=== PATIENT | female | born 1955 | race Caucasian/White ===

== ENCOUNTER 2016-03-29 20:58 | Emergency (ER) | payer OTHER ==
[2016-03-29] MEDS ORDERED: IBUPROFEN 600 MG TAB PO STA (22:00)
--- NOTE | 2016-03-29 22:08 | ED ---
Lower Extremity Injury HPI - General Chief Complaint: Extremity Injury, Lower Stated Complaint: R ankle injury Time Seen by Provider: 03/29/16 21:35 Source: patient, RN notes reviewed Mode of arrival: wheelchair Limitations: no limitations - History of Present Illness Initial Comments: Patient is a 60-year-old female presents to the emergency room for evaluation of fall injury. Patient states that she slipped and fell on ice on her porch. Patient states that she twisted her right ankle. Patient states she's complaining of right ankle pain. Patient denies any other injuries during incident. Patient states having 8 out of 10 constant throbbing pain on lateral portion of her ankle. Patient denies any numbness or tingling in her toes. Patient states it causes her pain to move her toes and her ankle. Patient denies knee pain or hip pain. - Related Data Home Medications Medication Instructions Recorded Confirmed Calcium Carbonate/Vitamin D3 1 tab PO DAILY 11/30/13 03/29/16 [Caltrate 600 + D Tablet] Diclofenac Sodium/Misoprostol 1 tab PO BID 11/30/13 03/29/16 [Diclofenac-Misoprost 75-200 Tb] Insulin Glargine [Lantus] 20 unit SQ HS 11/30/13 03/29/16 Losartan [Cozaar] 50 mg PO DAILY 11/30/13 03/29/16 Simvastatin [Zocor] 40 mg PO HS 11/30/13 03/29/16 metFORMIN HCL [Glucophage] 500 mg PO BID 11/30/13 03/29/16 Aspirin EC [Ecotrin Low Dose] 81 mg PO DAILY 03/29/16 03/29/16 Escitalopram [Lexapro] 20 mg PO HS 03/29/16 03/29/16 Insulin Lispro [humaLOG Kwikpen] See Protocol SQ AC-TID 03/29/16 03/29/16 Multivits-Min/Iron/FA/Lutein 1 tab PO DAILY 03/29/16 03/29/16 [Centrum Silver Women Tablet] Omeprazole [PriLOSEC] 20 mg PO DAILY 03/29/16 03/29/16 Previous Rx's Medication Instructions Recorded Ibuprofen [Motrin] 600 mg PO Q6HR PRN #20 tab 03/29/16 Allergies Allergy/AdvReac Type Severity Reaction Status Date / Time No Known Allergies Allergy Verified 03/29/16 21:39 Review of Systems ROS Statement: Those systems with pertinent positive or pertinent negative responses have been documented in the HPI. ROS Other: All systems not noted in ROS Statement are negative. Past Medical History Past Medical History: Diabetes Mellitus, Hyperlipidemia, Hypertension History of Any Multi-Drug Resistant Organisms: None Reported Past Surgical History: Section, Cholecystectomy, Hysterectomy, Orthopedic Surgery Additional Past Surgical History / Comment(s): PARTIAL HYSTERECTOMY; THYROID SURGERY; HEEL SPUR REMOVAL; BILATERAL CARPAL TUNNEL REPAIR; PIN/PLATE/GRAFT/ SCREWS LEFT WRIST Past Anesthesia/Blood Transfusion Reactions: No Reported Reaction Past Psychological History: Depression Smoking Status: Current every day smoker Past Alcohol Use History: None Reported Additional Past Alcohol Use History / Comment(s): pt stated smokes 1/2 pack per day Past Drug Use History: None Reported - Past Family History Father Additional Family Medical History / Comment(s): quadruple bypass, 2 or 3 stents placed (pt can't remember) General Exam - General Exam Comments Initial Comments: Sitting in exam room in no acute distress. Limitations: no limitations General appearance: alert, in no apparent distress Head exam: Present: atraumatic, normocephalic, normal inspection Eye exam: Present: normal appearance ENT exam: Present: normal exam Neck exam: Present: normal inspection Respiratory exam: Present: normal lung sounds bilaterally. Absent: respiratory distress Cardiovascular Exam: Present: regular rate, normal rhythm, normal heart sounds Right Lower Leg exam: Present: normal inspection, full ROM. Absent: tenderness Ankle exam: Present: full ROM, tenderness (Lateral malleolus), swelling ( Lateral malleolus). Absent: normal inspection, ecchymosis, deformity Foot/Toe exam: Present: normal inspection, full ROM. Absent: tenderness Neurovascular tendon exam: Absent: pulse deficit (2+ dorsal pedal and posterior tibial pulses), abnormal cap refill (Capillary refill less than 2 seconds) Back exam: Present: normal inspection Neurological exam: Present: alert, oriented X3, CN II-XII intact Psychiatric exam: Present: normal affect, normal mood Skin exam: Present: warm, dry, intact, normal color. Absent: rash Course Vital Signs 03/29/16 21:10 Temperature 98.4 F Pulse Rate 82 Respiratory 20 Rate Blood Pressure 199/97 O2 Sat by Pulse 97 Oximetry Medical Decision Making - Medical Decision Making Patient is a 60-year-old female since emergency room for about the fall injury. Patient complaining of right ankle pain. Right ankle/foot x-ray shows no acute findings. Patient placed in an Abdirashid wrap and crutches and advised follow up with gas plant specialist if symptoms are not improving in 7-10 days. Patient states she understands everything that was discussed with her. Return parameters discussed. Case discussed with Dr. Turcios. - Radiology Data Radiology results: report reviewed, image reviewed Disposition Clinical Impression: Right ankle sprain Disposition: HOME SELF-CARE Condition: Good Instructions: Ankle Sprain (ED) Additional Instructions: Rest, elevate and ice on and off for 10-15 minutes for the next 24-48 hours. Take Tylenol or Motrin as needed for pain. Nonweightbearing for 1-2 days. Please follow-up with gas plant specialist in 7-10 days if symptoms are not improving. If new symptoms develop or symptoms worsen, please return to the ER. Prescriptions: Ibuprofen [Motrin] 600 mg PO Q6HR PRN #20 tab PRN Reason: Pain Referrals: Buster Washington MD [Primary Care Provider] - 1-2 days Wilbur Lopez MD [Medical Doctor] - 1-2 days Time of Disposition: 22:15
--- NOTE | 2016-03-29 22:11 | XR ---
EXAMINATION TYPE: XR foot complete RT DATE OF EXAM: 03/29/2016 9:42 PM COMPARISON: NONE HISTORY: Pain after fall TECHNIQUE: 3 views FINDINGS: Bones and joints and soft tissues are unremarkable. IMPRESSION: Negative for fracture or malalignment.
--- NOTE | 2016-03-29 22:12 | XR ---
EXAMINATION TYPE: XR ankle complete RT DATE OF EXAM: 03/29/2016 9:42 PM COMPARISON: NONE HISTORY: Pain after fall TECHNIQUE: Reviews FINDINGS: Bones and joints and soft tissues are unremarkable. IMPRESSION: Negative for fracture or malalignment.
[2016-03-29 22:56] VITALS: BP 185/86; PULSE 65; RESP 18; TEMP 98.5
== END 2016-03-29 22:56 | disposition home or self-care (01) ==
LOC: EC 20:58
DX: S93.401A Sprain of unspecified ligament of right ankle, initial encounter (principal); E11.9 Type 2 diabetes mellitus without complications; E78.5 Hyperlipidemia, unspecified; I10 Essential (primary) hypertension; F32.9 Major depressive disorder, single episode, unspecified; F17.200 Nicotine dependence, unspecified, uncomplicated; W00.0XXA Fall on same level due to ice and snow, initial encounter; Y92.008 Other place in unspecified non-institutional (private) residence as the place of occurrence of the external cause; Z79.82 Long term (current) use of aspirin; Z79.4 Long term (current) use of insulin; Z79.899 Other long term (current) drug therapy; Z79.1 Long term (current) use of non-steroidal anti-inflammatories (NSAID)
CPT/HCPCS: 99283

== ENCOUNTER → 2016-12-10 | Outpatient (CLI) | payer OTHER ==
--- NOTE | 2016-12-11 10:20 | MM ---
Reason for exam: screening (asymptomatic). Last mammogram was performed 7 years ago. History: Patient is postmenopausal. Took hormonal contraceptives for 1 year 6 months beginning at age 21. Took estrogen for 5 years beginning at age 43. Physical Findings: A clinical breast exam by your physician is recommended on an annual basis and results should be correlated with mammographic findings. MG Screening Mammo w CAD Bilateral CC and MLO view(s) were taken. Prior study comparison: December 23, 2009, bilateral diagnostic digital mammog. December 17, 2008, bilateral digital screening mammogram. The breast tissue is heterogeneously dense. This may lower the sensitivity of mammography. Stable benign calcifications. There is no discrete abnormality. No significant changes when compared with prior studies. ASSESSMENT: Benign, BI-RAD 2 RECOMMENDATION: Routine screening mammogram of both breasts in 1 year.
== END | disposition home or self-care (01) ==
LOC: RADMAMWWP 16:24
PROVIDERS: ATTEND Family Medicine
DX: Z12.31 Encounter for screening mammogram for malignant neoplasm of breast (principal)

== ENCOUNTER → 2017-07-13 | Outpatient (CLI) | payer OTHER ==
--- NOTE | 2017-07-13 11:23 | CT ---
EXAMINATION TYPE: CT sinus wo con DATE OF EXAM: 07/13/2017 COMPARISON: NONE HISTORY: Patient complains of chronic sinus congestion, drainage, pressure, infections. CT DLP: 548 mGycm. Automated Exposure Control for Dose Reduction was Utilized. TECHNIQUE: CT scan of the sinuses is performed without contrast, axial images are obtained, coronal r eformatted images are also reviewed. FINDINGS: There is minimal opacification of the ethmoid air cells. Moderate coastal thickening involv ing the sphenoid sinus. No air-fluid levels. Nasal septal deviation noted.. The ostiomeatal complex is patent bilaterally on the coronal images. Visualized portion of mastoid air cells show no abnormal opacification. The globes are intact bilate rally. IMPRESSION: 1. Moderate sphenoidal and mild ethmoidal sinusitis.
== END | disposition home or self-care (01) ==
LOC: RADCTMAIN 10:41
PROVIDERS: ATTEND Family Medicine
DX: J32.3 Chronic sphenoidal sinusitis (principal); J32.2 Chronic ethmoidal sinusitis
CPT/HCPCS: 70486

== ENCOUNTER → 2017-08-01 | Outpatient (CLI) | payer OTHER ==
[2017-08-01 14:40] LABS: Basophils % (A) 0 %; Eosinophils % (A) 0 %; HCT 33.5 % (34.0-46.0); HGB 11.1 gm/dL (11.4-16.0); Lymphocytes # (A) 1.7 k/uL (1.0-4.8); Lymphocytes % (A) 12 %; MCH 29.3 pg (25.0-35.0); MCHC 33.2 g/dL (31.0-37.0); MCV 88.4 fL (80.0-100.0); Mean Platelet Volume 7.8; Monocytes # (A) 0.6 k/uL (0-1.0); Monocytes % (A) 5 %; Neutrophils # (A) 11.4 k/uL (1.3-7.7); Neutrophils % (A) 82 %; Platelet Count 216 k/uL (150-450); RBC 3.79 m/uL (3.80-5.40); RDW 14.1 % (11.5-15.5); WBC 13.9 k/uL (3.8-10.6)
[2017-08-01 14:50] LABS: Albumin 3.5 g/dL (3.5-5.0); C Reactive Protein 80.6 mg/L (<10.0); Calcium 8.7 mg/dL (8.4-10.2); Potassium 4.6 mmol/L (3.5-5.1); Total Bilirubin 0.6 mg/dL (0.2-1.3); Total Protein 6.9 g/dL (6.3-8.2)
[2017-08-01 20:47] LABS: Gliadin AB IgA, Unit 1.5 U/mL
== END | disposition home or self-care (01) ==
LOC: LABWHC1 14:02
PROVIDERS: ATTEND Internal Medicine Gastroenterology
DX: K52.9 Noninfective gastroenteritis and colitis, unspecified (principal)
CPT/HCPCS: 36415; 80053; 83516; 85025; 86140

== ENCOUNTER 2017-08-02 09:23 | Inpatient (IN) | payer OTHER ==
[2017-08-02] MEDS ORDERED: SODIUM CHLORIDE 0.9% 1,000 ML IV STA (09:50)
[2017-08-02 10:24] LABS: Basophils % (A) 0 %; Eosinophils % (A) 0 %; HGB 11.1 gm/dL (11.4-16.0); Lymphocytes # (A) 1.5 k/uL (1.0-4.8); Lymphocytes % (A) 9 %; MCH 30.2 pg (25.0-35.0); MCHC 34.9 g/dL (31.0-37.0); MCV 86.5 fL (80.0-100.0); Mean Platelet Volume 7.6; Monocytes # (A) 0.8 k/uL (0-1.0); Monocytes % (A) 5 %; Neutrophils % (A) 85 %; Platelet Count 220 k/uL (150-450); RBC 3.69 m/uL (3.80-5.40); RDW 13.9 % (11.5-15.5); WBC 16.5 k/uL (3.8-10.6)
[2017-08-02 10:38] LABS: Albumin 3.7 g/dL (3.5-5.0); Amylase 119 U/L (30-110); Anion Gap 14 mmol/L; Calcium 8.8 mg/dL (8.4-10.2); Carbon Dioxide 17 mmol/L (22-30); Chloride 96 mmol/L (98-107); Glucose 142 mg/dL (74-99); Lipase 985 U/L (23-300); Sodium 127 mmol/L (137-145); Total Bilirubin 0.9 mg/dL (0.2-1.3); Total Protein 7.2 g/dL (6.3-8.2)
[2017-08-02 10:40] LABS: ALT 29 U/L (9-52); AST 45 U/L (14-36); Blood Urea Nitrogen 34 mg/dL (7-17); Magnesium 1.2 mg/dL (1.6-2.3); Potassium 4.8 mmol/L (3.5-5.1)
[2017-08-02 10:41] LABS: Alkaline Phosphatase 117 U/L (38-126)
--- NOTE | 2017-08-02 11:34 | CT ---
EXAMINATION TYPE: CT abdomen pelvis wo con DATE OF EXAM: 08/02/2017 COMPARISON: NONE HISTORY: Nausea, vomiting and diarrhea for 6 months, worse in the past [address] DLP: 1061 mGycm Automated exposure control for dose reduction was used. TECHNIQUE: Helical acquisition of images was performed from the lung bases through the pelvis. FINDINGS: LUNG BASES: No significant abnormality is appreciated. LIVER/GB: The liver is elongated and hypoattenuated diffusely most commonly related to hepatic steato sis. Although the gallbladder is surgically absent there remains a small 2 mm calculus likely within the dilated cystic duct remnant on series 3 image 26 and series 5 image 40. The common bile duct seen series 5 image 36 is nondilated and free of calculi. PANCREAS: No significant abnormality is seen. SPLEEN: No significant abnormality is seen. ADRENALS: There is slight thickening of the adrenal glands bilaterally elbow they maintain their norm al adreniform shape most characteristic of adrenal gland hyperplasia. KIDNEYS: There is mild bilateral perinephric fat stranding, left greater than right and bilateral pun ctate nonobstructing renal calculi (1 to 2 mm each). There are 2 calculi noted on the left and 2 calc quynh noted on the right. Uroepithelial thickening is seen of the left renal pelvis although there is n o hydronephrosis or obstructing calculus. Emanating from the right upper pole of the kidney there is a 4 mm too small to accurately characterize lesion containing 2 punctate calcifications. FREE AIR: No free air is visualized ADENOPATHY: No greater than 1 cm short axis lymph node is seen within the abdomen or pelvis. REPRODUCTIVE ORGANS: No significant abnormality is seen URINARY BLADDER: No significant abnormality is seen. OSSEOUS STRUCTURES: Mild multilevel degenerative changes of the visualized thoracolumbar spine are n oted. BOWEL: Numerous colonic diverticula are seen without focal pericolonic fat stranding. Surgical sutur es are noted of the cecum. No dilated large or small bowel. Diffuse thickening of the gastric body co uld relate to incomplete distention or gastritis. Small gastric diverticulum is incidentally noted. A dditionally within the ascending colon there is some mucosal deposition of fat, which can be seen in chronic inflammatory disorders. IMPRESSION: 1. LEFT PERINEPHRIC FAT STRANDING AND PROXIMAL UROEPITHELIAL THICKENING RAISING SUSPICION FOR PYELONE PHRITIS. CORRELATE WITH URINALYSIS. BILATERAL NONOBSTRUCTING RENAL CALCULI ARE SEEN WITH NO EVIDENCE OF OBSTRUCTIVE UROPATHY OR HYDRONEPHROSIS. 2. DIFFUSE GASTRIC BODY CIRCUMFERENTIAL THICKENING MAY RELATE TO INCOMPLETE DISTENTION OR GASTRITIS. ENDOSCOPY COULD BE PERFORMED FOR FURTHER EVALUATION. 3. SUBMUCOSAL DEPOSITION OF FAT WITHIN THE ASCENDING COLON CAN BE SEEN IN CHRONIC INFLAMMATORY BOWEL DISEASE. 4. PUNCTATE CALCIFICATION LIKELY WITHIN THE CYSTIC DUCT REMNANT. NO DILATED COMMON BILE DUCT. 5. COLONIC DIVERTICULOSIS WITHOUT EVIDENCE OF ACUTE DIVERTICULITIS.
--- NOTE | 2017-08-02 11:45 | ED ---
Nausea/Vomiting/Diarrhea HPI - General Chief complaint: Nausea/Vomiting/Diarrhea Stated complaint: NVD Time Seen by Provider: 08/02/17 09:50 Source: patient, RN notes reviewed Mode of arrival: ambulatory Limitations: no limitations - History of Present Illness Initial comments: This a 62-year-old female presents emergency Department with complaints of nausea vomiting diarrhea. Patient states symptoms have been hasn't last 3 weeks but progressively getting worse. Patient states that she saw her primary care physician in which they were not sure what was causing her symptoms. Patient was referred to GI in which she had an appointment yesterday. She was not started on any medications though she had lab work and stool studies. Patient reports that she feels nauseated most the day but is worse in the morning and afternoon towards nighttime. Patient reports that she has no interest in eating food. Patient has multiple episodes of diarrhea watery sometimes semi-formed. Patient had a prior cholecystectomy several years ago. Patient reports no fever no chills no chest pain or shortness of breath. Patient denies any melena, hematochezia, hematemesis coffee-ground emesis. Patient has not had a recent EGD or colonoscopy. - Related Data Home Medications Medication Instructions Recorded Confirmed Calcium Carbonate/Vitamin D3 1 tab PO DAILY 11/30/13 08/02/17 [Caltrate 600 + D Tablet] Simvastatin [Zocor] 40 mg PO HS 11/30/13 08/02/17 metFORMIN HCL [Glucophage] 500 mg PO BID 11/30/13 08/02/17 Aspirin EC [Ecotrin Low Dose] 81 mg PO DAILY 03/29/16 08/02/17 Escitalopram [Lexapro] 20 mg PO DAILY 03/29/16 08/02/17 Insulin Lispro [humaLOG Kwikpen] See Protocol SQ AC-TID 03/29/16 08/02/17 Multivit-Min/Iron/Folic/Lutein 1 tab PO DAILY 03/29/16 08/02/17 [Centrum Silver Women Tablet] Omeprazole [PriLOSEC] 20 mg PO DAILY 03/29/16 08/02/17 Insulin Glargine,Hum.rec.anlog 10 unit SQ HS 08/02/17 08/02/17 [Basaglar Kwikpen U-100] Insulin Glargine,Hum.rec.anlog 24 unit SQ QA 08/02/17 08/02/17 [Basaglar Nirajpen U-100] Losartan/Hydrochlorothiazide 1 tab PO DAILY 08/02/17 08/02/17 [Losartan-Hctz 100-12.5 mg Tab] Meloxicam [Mobic] 15 mg PO DAILY 08/02/17 08/02/17 amLODIPine [Norvasc] 5 mg PO DAILY 08/02/17 08/02/17 Allergies Allergy/AdvReac Type Severity Reaction Status Date / Time No Known Allergies Allergy Verified 08/02/17 10:01 Review of Systems ROS Statement: Those systems with pertinent positive or pertinent negative responses have been documented in the HPI. ROS Other: All systems not noted in ROS Statement are negative. Past Medical History Past Medical History: Diabetes Mellitus, Hyperlipidemia, Hypertension History of Any Multi-Drug Resistant Organisms: None Reported Past Surgical History: Section, Cholecystectomy, Hysterectomy, Orthopedic Surgery Additional Past Surgical History / Comment(s): PARTIAL HYSTERECTOMY; THYROID SURGERY; HEEL SPUR REMOVAL; BILATERAL CARPAL TUNNEL REPAIR; PIN/PLATE/GRAFT/ SCREWS LEFT WRIST Past Anesthesia/Blood Transfusion Reactions: No Reported Reaction Past Psychological History: Depression Smoking Status: Current every day smoker Past Alcohol Use History: None Reported Past Drug Use History: None Reported - Past Family History Father Additional Family Medical History / Comment(s): quadruple bypass, 2 or 3 stents placed (pt can't remember) General Exam Limitations: no limitations General appearance: alert, in no apparent distress Head exam: Present: atraumatic, normocephalic, normal inspection Neck exam: Present: normal inspection. Absent: tenderness, meningismus, lymphadenopathy Respiratory exam: Present: normal lung sounds bilaterally. Absent: respiratory distress, wheezes, rales, rhonchi, stridor Cardiovascular Exam: Present: regular rate, normal rhythm, normal heart sounds. Absent: systolic murmur, diastolic murmur, rubs, gallop, clicks GI/Abdominal exam: Present: soft, normal bowel sounds. Absent: distended, tenderness, guarding, rebound, rigid Back exam: Absent: CVA tenderness (R), CVA tenderness (L) Skin exam: Present: warm, dry, intact, normal color. Absent: rash Course Vital Signs 08/02/17 09:39 Temperature 98.7 F Pulse Rate 106 H Respiratory 18 Rate Blood Pressure 103/66 O2 Sat by Pulse 97 Oximetry Medical Decision Making - Lab Data Result diagrams: 08/02/17 09:58 08/02/17 09:58 Lab Results 08/02/17 08/02/17 08/02/17 Range/Units 09:58 09:58 11:44 WBC 16.5 H (3.8-10.6) k/uL RBC 3.69 L (3.80-5.40) m/uL Hgb 11.1 L (11.4-16.0) gm/dL Hct 32.0 L (34.0-46.0) % MCV 86.5 (80.0-100.0) fL MCH 30.2 (25.0-35.0) pg MCHC 34.9 (31.0-37.0) g/dL RDW 13.9 (11.5-15.5) % Plt Count 220 (150-450) k/uL Neutrophils % 85 % Lymphocytes % 9 % Monocytes % 5 % Eosinophils % 0 % Basophils % 0 % Neutrophils # 14.0 H (1.3-7.7) k/uL Lymphocytes # 1.5 (1.0-4.8) k/uL Monocytes # 0.8 (0-1.0) k/uL Eosinophils # 0.0 (0-0.7) k/uL Basophils # 0.0 (0-0.2) k/uL Sodium 127 L (137-145) mmol/L Potassium 4.8 (3.5-5.1) mmol/L Chloride 96 L (98-107) mmol/L Carbon Dioxide 17 L (22-30) mmol/L Anion Gap 14 mmol/L BUN 34 H (7-17) mg/dL Creatinine 2.60 H (0.52-1.04) mg/dL Est GFR (CKD-EPI)AfAm 22 (>60 ml/min/1.73 sqM) Est GFR (CKD-EPI)NonAf 19 (>60 ml/min/1.73 sqM) Glucose 142 H (74-99) mg/dL Calcium 8.8 (8.4-10.2) mg/dL Magnesium 1.2 L (1.6-2.3) mg/dL Total Bilirubin 0.9 (0.2-1.3) mg/dL AST 45 H (14-36) U/L ALT 29 (9-52) U/L Alkaline Phosphatase 117 (38-126) U/L Total Protein 7.2 (6.3-8.2) g/dL Albumin 3.7 (3.5-5.0) g/dL Amylase 119 H (30-110) U/L Lipase 985 H (23-300) U/L Urine Color Yellow Urine Appearance Turbid H (Clear) Urine pH 6.0 (5.0-8.0) Ur Specific [place] 1.013 (1.001-1.035) Urine Protein 2+ H (Negative) Urine Glucose (UA) Negative (Negative) Urine Ketones Negative (Negative) Urine Blood Small H (Negative) Urine Nitrite Negative (Negative) Urine Bilirubin Negative (Negative) Urine Urobilinogen <2.0 (<2.0) mg/dL Ur Leukocyte Esterase Large H (Negative) Urine WBC >182 H (0-5) /hpf Urine WBC Clumps Many H (None) /hpf Ur Squamous Epith Cells 2 (0-4) /hpf Urine Bacteria Many H (None) /hpf Acetone, Qual Negative (Negative) Disposition Clinical Impression: Dehydration, Acute kidney injury, Pyelonephritis, Acute pancreatitis, Gastritis Disposition: ADMITTED IP TO THIS HOSP Condition: Fair Referrals: Buster Washington MD [Primary Care Provider] - 1-2 days
[2017-08-02 12:00] LABS: Appearance,Urine Turbid (Clear); Bacteria,Urine Many /hpf; Bilirubin,Urine Negative (Negative); Blood,Urine Small (Negative); Color,Urine Yellow; Glucose,Urine (UA) Negative (Negative); Ketones,Urine Negative (Negative); Leukocyte Esterase,Urine Large (Negative); Nitrite,Urine Negative (Negative); Protein,Urine 2+ (Negative); Specific Gravity,Urine 1.013 (1.001-1.035); Squamous Epithelial Cell,Urine 2 /hpf (0-4); Urobilinogen,Urine <2.0 mg/dL (<2.0); WBC,Urine >182 /hpf (0-5)
[2017-08-02] MEDS ORDERED: PANTOPRAZOLE 40 MG/10 ML VIAL IVP STA (12:37)
[2017-08-02] MEDS ORDERED: cefTRIAXone IN SWFI 1,000 MG/10 ML SYRINGE IVP STA (12:37)
[2017-08-02] MEDS ORDERED: ONDANSETRON 4 MG/2 ML VIAL IVP STA (12:40)
[2017-08-02] MEDS ORDERED: NALOXONE 0.4 MG/ML 1 ML VIAL IV PRN (12:42)
[2017-08-02] MEDS ORDERED: ONDANSETRON 4 MG/2 ML VIAL IVP PRN (12:42)
[2017-08-02] MEDS ORDERED: SODIUM CHLORIDE 0.9% 1,000 ML IV SCH (12:45)
[2017-08-02] MEDS ORDERED: MAGNESIUM SULFATE-D5W PMX 1 GM in DEXTROSE/WATER 1 100ML.BAG IVPB ONE (13:04)
[2017-08-02] MEDS: SODIUM CHLORIDE 0.9% 1,000 ML IV SCH (13:53)
[2017-08-02] MEDS: SODIUM CHLORIDE 0.9% 1,000 ML IV ONE ×2 (14:18→15:53)
--- NOTE | 2017-08-02 15:23 | P.HPIM ---
History of Present Illness H&P Date: 08/02/17 Chief Complaint: N/V/D 62-year-old female who presented to the emergency room with a chief complaint of nausea, vomiting, and diarrhea. The patient states over the last six months she had has vomiting and diarrhea on and off. She reports it has gotten worse over the past week. She reports that Dr. Washington referred her to a GI specialist. She states she had an appointment with them yesterday. They ordered lab work and a stool sample. She reports dropping off a stool sample today. She states she had an EGD and colonoscopy in 2016 or 2017. She believes it may have been at [facility]. She denies fever or chills. Denies sick contacts. She denies hematochezia or melena. Denies hematemesis. She denies abdominal pain. She denies chest pain or pressure. Denies shortness of breath or cough. She denies urinary symptoms such as urgency, frequency, malodorous urine, or dysuria. The patient has a history of diabetes mellitus, hypertension, hyperlipidemia, gastroesophageal reflux disease, osteoarthritis, and depression. She is a current everyday cigarette smoker. She usually smokes half a pack per day. She reports only smoking 1-2 cigarettes over the last few days secondary to not feeling well. She denies any alcohol use. She states she had her gallbladder out many years ago. She also reports that she has been seen a engine service repairer for a skin condition recently, but she is unable to recall the name of the condition. She states she has been receiving IM steroid injections every 2 weeks and just recently received her second injection. She was also prescribed a steroid cream. CT abdomen and pelvis: Left perinephric fat stranding and proximal uroepithelial thickening raising suspicion for pyelonephritis. Correlate with urinalysis. Bilateral nonobstructing renal calculi are seen with no evidence of obstructive uropathy or hydronephrosis. Diffuse gastric body circumferential thickening may relate to incomplete distention or gastritis. Endoscopy could be performed for further evaluation. Submucosal deposition of fat within the ascending colon can be seen in chronic inflammatory bowel disease. Punctate calcification likely within the cystic duct remnant. No dilated common bile duct. Chronic diverticulosis without evidence of acute diverticulitis. Laboratory data: WBC 16.5. Hemoglobin 11.1. Count 220. Sodium 127. Potassium 4.8. Chloride 96. Carbon dioxide 17. BUN 34. Creatinine 2.6. GFR 19. Glucose 142. Magnesium 1.2. AST 45. ALT 29. Alkaline phosphatase 117. Total bilirubin 0.9. Amylase 119. Lipase 985. Lactic acid: 0.7 Acetone: negative Urinalysis reveals: Turbid yellow urine, 2+ proteinuria, small blood, large leukocyte esterase, WBCs greater than 182, Many WBC clumps The patient was admitted to the hospital under the care of Dr. Washington. Review of Systems GENERAL: Patient denies fever. Denies chills. EYES: Denies blurred vision. Denies vision changes. Denies eye pain. EARS, NOSE, MOUTH, & THROAT: Denies headache. Denies sore throat. Denies ear pain. RESPIRATORY: Denies cough. Denies shortness of breath. Denies sputum production. Denies hemoptysis. CARDIOVASCULAR: Denies chest pain or pressure. Denies palpitations. Denies arrhythmias. GASTROINTESTINAL: Positive for nausea, vomiting, and diarrhea. Denies abdominal pain. Denies blood in stool. Denies hematemesis. GENITOURINARY: Denies flank pain. Denies urinary frequency. Denies burning. Denies dysuria. Denies cloudy urine. Denies blood in the urine. MUSCULOSKELETAL: Denies myalgias. Denies joint swelling. Denies decreased range of motion beyond patients baseline. INTEGUMENTARY: Denies pruitis. Denies rash. PSYCHIATRIC: Denies suicidal or homicial ideations. ENDOCRINE: Denies weight change. Denies polydipsia. Denies polyuria. HEMATOLOGIC: Denies bleeding disorders. Past Medical History Past Medical History: Diabetes Mellitus, GERD/Reflux, Hyperlipidemia, Hypertension, Osteoarthritis (OA), Thyroid Disorder Additional Past Medical History / Comment(s): IDDM type II, pt has for past several months problems with skin condition scattered over body-she states she is receiving steroid injections and has a creme for this and that it is not contagious but she cannot recall name of this condition, generalized arthritis, thyroid nodules-surgically removed. History of Any Multi-Drug Resistant Organisms: None Reported Past Surgical History: Section, Cholecystectomy, Heart Catheterization , Hysterectomy, Orthopedic Surgery Additional Past Surgical History / Comment(s): PARTIAL HYSTERECTOMY; THYROID SURGERY FOR NODULES; L HEEL SPUR REMOVAL; BILATERAL CARPAL TUNNEL REPAIR; PIN/ PLATE/GRAFT/SCREWS LEFT WRIST D/T FRACTURE, COLONOSCOPY-NORMAL, 2013 CARDIAC CATH NORMAL. Past Anesthesia/Blood Transfusion Reactions: No Reported Reaction Past Psychological History: Depression Additional Psychological History / Comment(s): Pt resides with her spouse. She is independent. Smoking Status: Current every day smoker Past Alcohol Use History: None Reported Additional Past Alcohol Use History / Comment(s): Pt started smoking in 1973 and smokes 1/2 pack per day Past Drug Use History: None Reported - Past Family History Father Family Medical History: Cancer, Coronary Artery Disease (CAD) Additional Family Medical History / Comment(s): Quadruple bypass, 2 or 3 stents placed (pt can't remember), prostrate cancer, basal skin cancer. Father is living. Mother Family Medical History: Hyperlipidemia, Hypertension Additional Family Medical History / Comment(s): Mother is living. Medications and Allergies Home Medications Medication Instructions Recorded Confirmed Type Calcium Carbonate/Vitamin D3 1 tab PO DAILY 11/30/13 08/02/17 History [Caltrate 600 + D Tablet] Simvastatin [Zocor] 40 mg PO HS 11/30/13 08/02/17 History metFORMIN HCL [Glucophage] 500 mg PO BID 11/30/13 08/02/17 History Aspirin EC [Ecotrin Low Dose] 81 mg PO DAILY 03/29/16 08/02/17 History Escitalopram [Lexapro] 20 mg PO DAILY 03/29/16 08/02/17 History Insulin Lispro [humaLOG Kwikpen] See Protocol SQ AC-TID 03/29/16 08/02/17 History Multivit-Min/Iron/Folic/Lutein 1 tab PO DAILY 03/29/16 08/02/17 History [Centrum Silver Women Tablet] Omeprazole [PriLOSEC] 20 mg PO DAILY 03/29/16 08/02/17 History Insulin Glargine,Hum.rec.anlog 10 unit SQ HS 08/02/17 08/02/17 History [Basaglar Kwikpen U-100] Insulin Glargine,Hum.rec.anlog 24 unit SQ QAM 08/02/17 08/02/17 History [Basaglar Kwikpen U-100] Losartan/Hydrochlorothiazide 1 tab PO DAILY 08/02/17 08/02/17 History [Losartan-Hctz 100-12.5 mg Tab] Meloxicam [Mobic] 15 mg PO DAILY 08/02/17 08/02/17 History amLODIPine [Norvasc] 5 mg PO DAILY 08/02/17 08/02/17 History Allergies Allergy/AdvReac Type Severity Reaction Status Date / Time No Known Allergies Allergy Verified 08/02/17 10:01 Physical Exam Vitals: Vital Signs Temp Pulse Pulse Resp BP BP Pulse Ox 08/02/17 14:05 98.2 F 68 18 115/61 99 08/02/17 13:40 98.5 F 66 18 100/59 100 08/02/17 12:54 98.6 F 74 16 105/58 97 08/02/17 09:39 98.7 F 106 H 18 103/66 97 Intake and Output 08/01/17 08/02/17 08/02/17 22:59 06:59 14:59 Other: Weight 71.214 kg - Constitutional General appearance: cooperative, no acute distress - EENT Eyes: EOMI, PERRLA ENT: hearing grossly normal, no pharyngeal erythema, no thrush - Neck Neck: normal ROM - Respiratory Respiratory: bilateral: CTA, negative: rales, rhonchi, wheezing - Cardiovascular Rhythm: regular Heart sounds: normal: S1, S2 Abnormal Heart Sounds: no systolic murmur, no diastolic murmur - Gastrointestinal General gastrointestinal: no distended, normal bowel sounds, soft, no tenderness - Integumentary Flaky, patches of skin with areas of erythema to bilateral upper extremities and face. Patient states recently diagnosed with skin condition but does not remember name. Integumentary: no cellulitis, no cyanotic, no flushed, no jaundiced Results CBC & Chem 7: 08/02/17 09:58 08/02/17 09:58 Labs: Abnormal Lab Results - Last 24 Hours (Table) 08/02/17 08/02/17 08/02/17 Range/Units 09:58 09:58 11:44 WBC 16.5 H (3.8-10.6) k/uL RBC 3.69 L (3.80-5.40) m/uL Hgb 11.1 L (11.4-16.0) gm/dL Hct 32.0 L (34.0-46.0) % Neutrophils # 14.0 H (1.3-7.7) k/uL Sodium 127 L (137-145) mmol/L Chloride 96 L (98-107) mmol/L Carbon Dioxide 17 L (22-30) mmol/L BUN 34 H (7-17) mg/dL Creatinine 2.60 H (0.52-1.04) mg/dL Glucose 142 H (74-99) mg/dL Magnesium 1.2 L (1.6-2.3) mg/dL AST 45 H (14-36) U/L Amylase 119 H (30-110) U/L Lipase 985 H (23-300) U/L Urine Appearance Turbid H (Clear) Urine Protein 2+ H (Negative) Urine Blood Small H (Negative) Ur Leukocyte Esterase Large H (Negative) Urine WBC >182 H (0-5) /hpf Urine WBC Clumps Many H (None) /hpf Urine Bacteria Many H (None) /hpf Thrombosis Risk Factor Assmnt - Choose All That Apply Any of the Below Risk Factors Present?: Yes Each Factor Represents 1 point: Age 41-60 years, Obesity (BMI >25) Other Risk Factors: No Other congenital or acquired thrombophilia - If yes, enter type in comment: No Thrombosis Risk Factor Assessment Total Risk Factor Score: 2 Thrombosis Risk Factor Assessment Level: Low Risk Assessment and Plan Plan: ASSESSMENT: Nausea, vomiting, diarrhea intermittently for 6 months that has increased in severity x 1 week, etiology unclear Nonalcoholic pancreatitis with history of cholecystectomy, etiology unclear Left pyelonephritis, present on admission, patient denies urinary symptoms Acute renal failure, creatinine 2.6 on admission, baseline 0.7, likely due to hypovolemia secondary to persistent vomiting and diarrhea and pyelonephritis Bilateral nonobstructing renal calculi, no evidence of obstructive uropathy or hydronephrosis Diabetes mellitus, type II, hemoglobin A1c pending Diverticulosis, no evidence of diverticulitis per CT Hyperlipidemia Hypertension Osteoarthritis Gastroesophageal reflux disease History of depression Nicotine dependence, patient is a current cigarette smoker PLAN: Consult GI, Dr. Rene 1 L normal saline bolus Increase IV fluids to 150 mL an hour Replace magnesium. Repeat in a.m. Monitor kidney function-repeat in a.m. Monitor pancreatic enzymes-repeat in a.m. Continue Rocephin 1 g IV every 12 hours Await results of urine culture Nicotine patch offered to patient. Patient declining at this time. Home meds as appropriate Hold losartan/hydrochlorothiazide, meloxicam, and metformin due to kidney function GI prophylaxis: Protonix 40 mg IV Daily DVT prophylaxis: SCDs to bilateral lower extremities Monitor vital signs and address as appropriate Further recommendations pending patient's course Nurse practitioner note has been reviewed by physician. Signing provider agrees with the documented findings, assessment, and plan of care.
[2017-08-02] MEDS: MAGNESIUM SULFATE-D5W PMX 1 GM in DEXTROSE/WATER 1 100ML.BAG IVPB SCH ×2 (16:19→17:29)
[2017-08-02] MEDS: INSULIN ASPART 100 UNIT/ML 1 ML 10 ML VIAL SQ SCH ×2 (17:30→20:32)
[2017-08-02 17:31] LABS: Glucose,Whole Blood 118 mg/dL (75-99)
[2017-08-02 20:29] LABS: Glucose,Whole Blood 128 mg/dL (75-99)
[2017-08-02] MEDS: cefTRIAXone IN SWFI 1,000 MG/10 ML SYRINGE IVP SCH (21:24)
[2017-08-02] MEDS: INSULIN DETEMIR 100 UNIT/ML 10 ML VIAL SQ SCH (21:33)
[2017-08-03 07:32] LABS: Glucose,Whole Blood 76 mg/dL (75-99)
[2017-08-03 07:33] LABS: Basophils % (A) 0 %; Eosinophils # (A) 0.1 k/uL (0-0.7); Eosinophils % (A) 1 %; HCT 27.6 % (34.0-46.0); Lymphocytes # (A) 1.1 k/uL (1.0-4.8); Lymphocytes % (A) 10 %; MCH 29.6 pg (25.0-35.0); MCHC 33.7 g/dL (31.0-37.0); MCV 87.7 fL (80.0-100.0); Monocytes # (A) 0.6 k/uL (0-1.0); Monocytes % (A) 6 %; Neutrophils % (A) 82 %; Platelet Count 172 k/uL (150-450); RBC 3.14 m/uL (3.80-5.40)
[2017-08-03 07:34] LABS: HGB 9.3 gm/dL (11.4-16.0)
[2017-08-03 08:34] LABS: Albumin 2.5 g/dL (3.5-5.0); Calcium 7.8 mg/dL (8.4-10.2); Magnesium 2.2 mg/dL (1.6-2.3); Potassium 4.8 mmol/L (3.5-5.1); Total Bilirubin 0.5 mg/dL (0.2-1.3); Total Protein 5.5 g/dL (6.3-8.2)
[2017-08-03] MEDS: SODIUM CHLORIDE 0.9% 1,000 ML IV SCH ×3 (08:39→14:04)
[2017-08-03] MEDS: INSULIN ASPART 100 UNIT/ML 1 ML 10 ML VIAL SQ SCH ×4 (08:39→21:03)
[2017-08-03] MEDS: INSULIN DETEMIR 100 UNIT/ML 10 ML VIAL SQ SCH ×2 (08:40→21:04)
[2017-08-03] MEDS: ESCITALOPRAM 20 MG TAB PO SCH (08:44)
[2017-08-03] MEDS: PANTOPRAZOLE 40 MG/10 ML VIAL IV SCH (08:44)
[2017-08-03] MEDS: cefTRIAXone IN SWFI 1,000 MG/10 ML SYRINGE IVP SCH ×2 (08:44→20:27)
[2017-08-03] MEDS: ASPIRIN 81 MG PO SCH (08:44)
[2017-08-03] MEDS: amLODIPine 5 MG TAB PO SCH (08:44)
--- NOTE | 2017-08-03 09:38 | CONS ---
CONSULTATION DATE OF DICTATION: August 03, 2017. REQUESTING PHYSICIAN: Dr. Washington. REASON FOR CONSULTATION: Nausea, vomiting, diarrhea. HISTORY OF PRESENT ILLNESS: The patient is a 62-year-old pleasant white female, came to the emergency room complaining of nausea, vomiting, diarrhea for the last on and off for the last few months duration. The patient was in fact seen in consultation by me in the office 2 days ago and stool studies were ordered and C diff toxin was reported as negative. In the meantime, after she went home, yesterday, she felt extremely weak tired and had some chills and hence came into the emergency room and subsequently admitted to the hospital with pyelonephritis. She was started on broad-spectrum antibiotics and she is feeling much better this morning. She denies any abdominal pain. Since being in the hospital she does not have any nausea, vomiting. The patient states that when she started having diarrhea a few months ago she used to have bowel movements from 5-10 a day, but over the last 1 month the progressively got worse and she was having bowel movements anywhere from 15-20 a day loose to watery in consistency, but no blood or mucus in the stool. She was treated with antibiotics about a month ago for upper respiratory tract infection. She recalls having a colonoscopy about 2 years ago that was unremarkable. CT of the abdomen and pelvis done in the emergency room did show some fat stranding in the left kidney suspicious for pyelonephritis. Also, they were small kidney stones noted. PAST MEDICAL HISTORY: Significant for hypertension, hyperlipidemia, degenerative joint disease, diabetes mellitus, GERD, hypothyroidism. PAST SURGICAL HISTORY: Cardiac catheterization, colonoscopy about 2 or 3 years ago, , hysterectomy, thyroid surgery, left wrist surgery. MEDICATIONS: At home include vitamin D3, Glucophage, Zocor, aspirin, Lexapro, Prilosec, insulin, hydrochlorothiazide, Norvasc. ALLERGIES: None. SOCIAL HISTORY: No smoking. No alcohol use. FAMILY HISTORY: Father had coronary artery disease. Mother had hypertension and hyperlipidemia. REVIEW OF SYSTEMS: Cardiopulmonary: She denies any chest pain or shortness of breath. Genitourinary: No dysuria or hematuria. Musculoskeletal unremarkable. Skin unremarkable. Endocrine unremarkable. Psychiatric unremarkable. Neurology unremarkable. ENT/vision unremarkable. Constitutional: Weight loss of 15 pounds. No fever, chills, night sweats. PHYSICAL EXAMINATION: She appears comfortable in no apparent distress. Vital signs are stable. Blood pressure 115/61, pulse 83, temperature 98.2. HEENT: Examination unremarkable. Conjunctivae pink. Sclerae anicteric. Oral cavity no lesions. Neck: No jugular venous distention or lymph node enlargement. Chest was clear to auscultation. HEART: Regular rate and rhythm. ABDOMEN: Soft, it was nontender, nondistended. Bowel sounds are positive. No organomegaly. Extremities: No pedal edema. Skin no rashes. NEUROLOGIC: Alert and oriented x3. No focal deficits. LAB DATA: At the time of admission to the hospital: WBC 16.5, hemoglobin 11, platelets are normal. Basic metabolic panel showed a BUN of 34, creatinine 2.6, sodium was 122. This morning BUN is 29, creatinine 1.98. Amylase is 119, lipase is 985. This morning repeat amylase is 105 and lipase is 915. Stool cultures in progress. Stool C diff toxin was negative. IMPRESSION: 1. Nausea, vomiting, diarrhea of several weeks duration which has been progressively getting worse over the last 2 weeks. She has been having the symptoms intermittently initially but for the last 2 weeks has bowel movements anywhere from 15-20 a day which are loose to watery in consistency, but no blood or mucus in the stool. Most likely we are dealing with infectious etiology, but possibility of inflammatory bowel disease or other etiology cannot be excluded. Her last colonoscopy 2 years ago at [facility] was unremarkable. 2. Acute pyelonephritis on broad-spectrum antibiotics. 3. Acute renal failure probably related to hypovolemia/dehydration. 4. Elevated amylase and lipase, but clinically patient does not have any evidence of pancreatitis. CT of the abdomen showed normal-appearing pancreas. The lipase could be nonspecific in etiology related to the nausea, vomiting, and diarrhea. RECOMMENDATIONS: 1. We will repeat stool for C diff toxin. 2. Continue with antibiotics for pyelonephritis. 3. Await the rest of the stool cultures. 4. Advance diet as tolerated. 5. Based on her symptoms, I will decide if she needs any endoscopy intervention during this hospitalization. 6. We will follow her closely during hospital stay. Thank you for this consultation. MMODL / IJN: [id number] /
[2017-08-03 10:19] VITALS: BMI 31.7
[2017-08-03 11:11] LABS: Glucose,Whole Blood 149 mg/dL (75-99)
--- NOTE | 2017-08-03 12:29 | PN ---
PROGRESS NOTE This is a 62-year-old white female who presented to the emergency room with the chief complaint of nausea, vomiting and diarrhea. She states that over the last 6 months she has had vomiting and diarrhea off and on. She reports it has gotten worse over the last week. I referred her to a GI specialist. She had an appointment with him yesterday. They just ordered a stool sample and to drop off some labs. She is being scheduled for EGD and colonoscopy after we have the stool samples back at that time with Dr. Rene. The patient has a history of some changes on her skin. She did receive 3 Depo-Medrol injections also. Her sugars have been up and down. Her urinary symptoms have been none, and yet she was found to have pyuria and bacteruria. Her main problem is just the loose stool that comes and the weakness that she gets with it. She has a big time past history of insulin-dependent diabetes mellitus, hypertension, hyperlipidemia, GE reflux, osteoarthritis and some depression. She currently is an everyday smoker of about half a pack. She denies alcohol use. She does live up in [place]. She is down here living with her mother until she finds out what is going wrong. She also reports that she has seen a runstitching machine operator for a skin condition which is being treated. She does not recall her name, but I think it is the [employer]. She states that she has been receiving steroid creams, of course, and those injections as mentioned. She no longer has a gallbladder. Because of her nonspecific discomfort, a CT scan of the pelvis was completed, which showed left perinephric fat strands and proximal uroepithelial thickening, raising suspicion for pyelonephritis; correlate with urinalysis. She has bilateral nonobstructing renal calculi, diffuse gastric body circumferential thickening that may be related to incomplete distention or gastritis. The endoscopy is recommended. Submucosal deposition of fat within the ascending colon; could be inflammatory bowel disease. No history of diverticulosis or diverticulitis. Her initial white blood cell count was 16.5 and 11.1. At this time her WBC is 11 and her hemoglobin is 9 3 and her creatinine has dropped from 2.6 to 1.9. Magnesium is up to 2.2. Amylase is down from 119 to 105 and lipase is 985 to 959. REVIEW OF SYSTEMS: In general, she denies chills or fever. EYES: She has no blurred vision. No eye pain. ENT: Denies headache, sore throat. RESPIRATORY: Denies cough, shortness of breath, productive phlegm, hemoptysis. CARDIAC: No hematemesis. No orthopnea. No paroxysmal nocturnal dyspnea. Negative cough. Negative chest pressure. Negative palpitations. No history of arrhythmia. GI: Positive for nausea and vomiting and diarrhea. Denies abdominal pain. No hematemesis, melena, hematochezia. No constipation. : She has no flank pain. She has no urinary frequency. No dysuria. No cloudiness of the urine. No blood in her urine. No polyuria. MUSCULOSKELETAL: She has multiple aches and pains, decreased range of motion, she says, in her arms and her shoulders and severe back pain which is intractable at times. INTEGUMENTARY: Denies pruritus or rash. PSYCHIATRIC: No suicidal or homicidal idealization, but she is having depression related to these changes. ENDOCRINE: No weight change. No polydipsia. No polyuria. HEMATOLOGICAL: She has no problems, but she has had anemia in the past of chronic disease. No history of [id number] organisms. PAST SURGICAL HISTORY: 1. . 2. Cholecystectomy. 3. Heart catheterization. 4. Hysterectomy. 5. Orthopedic surgery. 6. Partial hysterectomy. 7. Thyroid surgery for nodules. 8. Left heel spur removal. 9. Bilateral carpal tunnel repair. 10.Screws in the left wrist. 11.Colonoscopy. 12.Cardiac arrhythmia. POST-ANESTHESIA/BLOOD TRANSFUSION REACTION: None to report. PAST PSYCHOLOGICAL HISTORY: Depression. Additional psychology history has been negative except for anxiety. Status post smoking daily. Alcohol use none. No drug use. FAMILY HISTORY: Father with cardiac disease and prostate cancer and skin cancer is alive. Mother hyperlipidemia, hypertension. She is living. MEDICATIONS AT THIS TIME: 1. Amlodipine 5 mg twice a day. 2. Aspirin 81 daily. 3. Antibiotic Rocephin 1 gram q.12 hours. 4. Lexapro 20 daily. 5. Insulin to scale. 6. Levemir 10 mg at bedtime, 24 mg in the morning. 7. Protonix 40 daily. Awaiting blood cultures. 1. Zofran p.r.n. for nausea. PHYSICAL EXAMINATION: Blood pressure is 134/61, heart rate in the 70s, respiratory rate 16, temperature 97.3. EYES: Pupils are equal, round, reactive to light and accommodation. ENT is within normal limits. NECK: Supple with a midline trachea. Negative carotid bruits. CHEST: Essentially clear to auscultation. HEART: Sinus rhythm with no murmur. Negative S3. Negative S4. ABDOMEN: Soft, nontender, with no organomegaly. Good bowel sounds. No distention. NEUROMUSCULAR: Arthritis in her knees. Arthritis in the lower legs. Decreased range of motion in all extremities. ASSESSMENT: 1. Nausea, vomiting and diarrhea leading to prerenal failure, including many watery stools. Colonoscopy 2 years ago at [facility] which was unremarkable. 2. What appears to be an acute pyelonephritis. Will continue IV antibiotics. 3. Acute renal failure secondary to hypovolemia which is prerenal in nature and dehydration. 4. Elevated amylase and lipase with no evidence of pancreatitis on examination or symptomatology. The CT scan at this time does show a normal-appearing pancreas. Lipase can be nonspecific in nausea, vomiting, diarrhea, but the amylase cannot be explained unless there is some GI component. 5. Dehydration. 6. Long-standing hypertension. 7. Degenerative disc disease, lumbar spine. 8. Type 2 diabetes with insulin support. 9. Bilateral nonobstructing renal calculi. 10.Diverticulosis. 11.Hyperlipidemia. 12.Generalized osteoarthritis. 13.Depression. 14.Nicotine dependence. 15.Gastroesophageal reflux. PLAN: Dr. Rene has completed some lab work. I have decided to do a complete stool for culture and sensitivity. Her IV fluids remain at 150. Replacement of magnesium has been completed and now it is at 2.2. Still unexplained elevation in amylase. We are holding several medications: metformin, losartan and meloxicam due to her renal function. GI prophylaxis with Protonix. DVT prophylaxis, lower extremities, to prevent DVT. IV antibiotics for pyelonephritis is fine with Rocephin at this time. We are waiting for final result. Guarded. I spent 45 minutes with this patient. MMODL / IJN: [id number] /
[2017-08-03 17:26] LABS: Glucose,Whole Blood 156 mg/dL (75-99)
[2017-08-03 21:01] LABS: Glucose,Whole Blood 175 mg/dL (75-99)
[2017-08-04] MEDS: SODIUM CHLORIDE 0.9% 1,000 ML IV SCH ×6 (05:31→17:43)
[2017-08-04 07:08] LABS: Glucose,Whole Blood 75 mg/dL (75-99)
[2017-08-04 07:29] LABS: Basophils % (A) 0 %; Eosinophils # (A) 0.1 k/uL (0-0.7); Eosinophils % (A) 1 %; HCT 27.8 % (34.0-46.0); HGB 9.2 gm/dL (11.4-16.0); Lymphocytes # (A) 1.2 k/uL (1.0-4.8); Lymphocytes % (A) 14 %; MCH 29.6 pg (25.0-35.0); MCHC 33.1 g/dL (31.0-37.0); MCV 89.7 fL (80.0-100.0); Mean Platelet Volume 7.3; Monocytes # (A) 0.4 k/uL (0-1.0); Monocytes % (A) 5 %; Neutrophils # (A) 6.8 k/uL (1.3-7.7); Neutrophils % (A) 80 %; Platelet Count 199 k/uL (150-450); RDW 14.6 % (11.5-15.5); WBC 8.5 k/uL (3.8-10.6)
[2017-08-04] MEDS: INSULIN ASPART 100 UNIT/ML 1 ML 10 ML VIAL SQ SCH ×4 (07:33→20:51)
[2017-08-04 07:39] LABS: Albumin 2.4 g/dL (3.5-5.0); Magnesium 1.8 mg/dL (1.6-2.3); Potassium 4.8 mmol/L (3.5-5.1); Total Bilirubin 0.2 mg/dL (0.2-1.3); Total Protein 5.3 g/dL (6.3-8.2)
[2017-08-04] MEDS: amLODIPine 5 MG TAB PO SCH (07:59)
[2017-08-04] MEDS: cefTRIAXone IN SWFI 1,000 MG/10 ML SYRINGE IVP SCH (07:59)
[2017-08-04] MEDS: ESCITALOPRAM 20 MG TAB PO SCH (07:59)
[2017-08-04] MEDS: ASPIRIN 81 MG PO SCH (07:59)
[2017-08-04] MEDS: PANTOPRAZOLE 40 MG/10 ML VIAL IV SCH (07:59)
[2017-08-04] MEDS: INSULIN DETEMIR 100 UNIT/ML 10 ML VIAL SQ SCH ×2 (08:07→20:51)
--- NOTE | 2017-08-04 09:49 | PN ---
PROGRESS NOTE DATE OF SERVICE: 08/04/17 Patient is a 62-year-old pleasant white female admitted to the hospital with nausea, vomiting, diarrhea of several weeks duration. She was diagnosed with UTI/pyelonephritis and started on broad-spectrum antibiotics, presently on Rocephin and doing much better. Since being in the hospital, the nausea and vomiting has resolved completely. The diarrhea has improved significantly. She had no bowel movements yesterday and this morning had 1 small bowel movement. No rectal bleeding. She denies any abdominal pain. Reports no fever, chills, night sweats. Stool testing for C diff toxin has been reported as negative. PHYSICAL EXAMINATION: She appears comfortable in no apparent distress. VITAL SIGNS: Vital signs stable. Blood pressure 128/62, pulse 89, temperature 99.3. HEENT examination unremarkable. Conjunctivae pink. Sclerae anicteric. Oral cavity no lesions. NECK: No jugular venous distention or lymph node enlargement. CHEST: Clear to auscultation. HEART: Regular rate and rhythm. ABDOMEN: Soft. Bowel sounds are positive. No organomegaly. EXTREMITIES: No pedal edema. SKIN: Diffuse rash in the upper extremities as well as in the back. LABORATORY DATA: Labs done from this morning WBC 8.5, hemoglobin 9.2, platelets are normal. Basic metabolic panel showed BUN of 19, creatinine 1.42. Amylase is 128 and lipase is 119. Rest of the labs are within normal limits. IMPRESSION: 1. Nausea, vomiting, diarrhea have significantly improved. C diff toxin has negative. 2. Urinary tract infection/pyelonephritis on Rocephin, doing much better. 3. Asymptomatic elevation of amylase and lipase. Clinically patient does not have any evidence of acute pancreatitis. CT of the abdomen done yesterday showed normal- appearing pancreas. Clinically doubt pancreatitis. RECOMMENDATIONS: 1. Advance diet as tolerated. 2. Continue with antibiotics for UTI/pyelonephritis. 3. Since her abdominal symptoms are significantly improved, I suggested that she can have endoscopies and a colonoscopy on outpatient basis. 4. Thank you for this consultation. MMODL / IJN: [id number] /
--- NOTE | 2017-08-04 12:10 | PN ---
PROGRESS NOTE This is a 62-year-old white female that presented to the emergency with a chief complaint of nausea, vomiting, and diarrhea. She states that over the last 6 months she has had diarrhea and vomiting off and on. She said it has worsened over the last week. She saw a GI specialist, Dr. Rene yesterday. Since that period of time, she became very weak with decreased responsiveness, some vertigo, and extreme fatigue and went to the emergency room. She also has a history of receiving injections for her rash, nonspecific, which just also happened here most recently. Long-standing history of insulin-dependent diabetes mellitus, hypertension, GE reflux, osteoarthritis, and depressed. She currently is an everyday smoker about a half a pack. She denies alcohol. She does live in [place]. She is down here with her mother until she finds out what is wrong. She also has reported that she has seen a dressage instructor, suspect Dr. Lu mix, for injections for this rash she has. Because of her nonresponsive discomfort, because of her nonspecific abdominal pain, she had a CT scan of the abdomen which showed some left perinephric fat strands and proximal uroepithelial thickening-raising suspicion for pyelonephritis. The urinalysis came back positive, which appears to be an E coli and antibiotics have been changed to Levaquin today from the cephalosporin. She has nonobstructing renal calculi, diffuse gastric body sarcoma for thickening and incomplete distention of gastritis. She has EGD and colonoscopy set up on outpatient basis per Dr. Rene as long as she continues to improve. She also has a history of diverticulitis. Today, WBC is down to 8.5 with 9.2 hemoglobin and creatinine is down to 1.24 with a 19 BUN. She has a rise in her lipase to 1199 and she has amylase of 128. Her AST and ALT are essentially normal. Her C difficile, which was done is negative. Her stool for Giardia and Cryptosporidium are also negative. Still awaiting the culture. Again, the microbiology has shown a positive gram-negative bacilli, suspect E coli in her urine, greater than 100,000 count, still waiting for definite diagnosis and sensitivity. REVIEW OF SYSTEMS: Today, EYES: she is seeing well. ENT: She has a dry mouth. NECK: No problems with swallowing. CHEST: No cough, no shortness of breath. HEART: No pain. No palpitations, chest pain, etc. GI: No problems of hematemesis, melena or hematochezia. She has a loose stool but no blood in her stool. No history of constipation. Nonspecific abdominal pain. Urination has been every hour without problems. NEUROMUSCULAR: Just the severe back pain of previously. MEDICATIONS: At this time he is still taking amlodipine 5 mg twice a day, antibiotic Rocephin 1 g q.12, aspirin 21 mg a day, Lexapro 20 daily times, insulin to scale a.c. meals and bedtimes, Levemir 10 mg at bedtime, 24 at morning, Protonix 40 daily, Zofran p.r.n. nausea. PHYSICAL EXAMINATION: Alert white female, feeling much better today. Blood pressure is 148/80, respiratory rate is in the 70s, temperature is 98.6, heart rate is 70s. EYES: Pupils are equal, round, react to light accommodation. ENT: Showed tympanic membranes and pharynx to be negative. NECK: Supple. Midline trachea. CHEST: Essentially clear to auscultation. Heart is sinus rhythm with no murmur. ABDOMEN: Soft, nontender with no organomegaly at this period of time. Minimal amount of distention noted today. NEUROMUSCULAR: Arthritis in the knees and lower legs, ankles are seen. She has got decreased pulses in both legs. Range of motion lumbar spine is decreased. She has a severe excoriated type rash in the right arm being treated by Dr. Leigh. ASSESSMENT: 1. Nausea, vomiting, diarrhea secondary to cause severe pre renal failure, now recovering. 2. GI entity of questionable etiology. 3. Acute pyelonephritis, probably E coli being treated with Levaquin. 4. Acute renal failure secondary to hypovolemia diagnosis prerenal and resolving with dehydration. 5. Elevated amylase and lipase with no evidence of symptomatology sign or CT scan of pancreatitis. 6. Dehydration, resolving. 7. Long-standing type 2 diabetes with insulin support. 8. Bilateral nonobstructing renal calculi. 9. Previous history of diverticulosis. 10.Hyperlipidemia. 11.Nicotine dependence. 12.Gastroesophageal reflux. 13.Depression. 14.Generalized osteoarthritis with severe lumbar stenosis. PLAN: 1. Dr. Rene saw her today. She probably will be set up for GI treatment on outpatient basis. 2. IV fluids have been decreased to 100 mL an hour. Magnesium has been replaced. 3. Her metformin, losartan, and meloxicam will be continued to be DC'd. 4. Her prophylaxis GI and DVT are to be continued. 5. Rocephin was DC'd and put on Levaquin 250 mg daily dose. 6. Patient was spent roughly 30 minutes. MMODL / SANGEETAN: [id number] /
[2017-08-04 12:12] LABS: Glucose,Whole Blood 124 mg/dL (75-99)
[2017-08-04] MEDS: LEVOFLOXACIN 250MG-D5W PMX 250 MG in DEXTROSE/WATER 1 50ML.BAG IVPB SCH (12:20)
[2017-08-04 17:17] LABS: Glucose,Whole Blood 136 mg/dL (75-99)
[2017-08-04 20:16] LABS: Glucose,Whole Blood 196 mg/dL (75-99)
[2017-08-05] MEDS: SODIUM CHLORIDE 0.9% 1,000 ML IV SCH ×3 (03:48→21:05)
[2017-08-05 07:02] LABS: Glucose,Whole Blood 86 mg/dL (75-99)
[2017-08-05] MEDS: INSULIN DETEMIR 100 UNIT/ML 10 ML VIAL SQ SCH ×2 (07:29→21:03)
[2017-08-05] MEDS: INSULIN ASPART 100 UNIT/ML 1 ML 10 ML VIAL SQ SCH ×4 (07:29→21:04)
[2017-08-05 07:35] LABS: Basophils % (A) 0 %; Eosinophils # (A) 0.1 k/uL (0-0.7); Eosinophils % (A) 1 %; HCT 30.5 % (34.0-46.0); HGB 10.1 gm/dL (11.4-16.0); Lymphocytes # (A) 1.3 k/uL (1.0-4.8); Lymphocytes % (A) 16 %; MCH 29.7 pg (25.0-35.0); Mean Platelet Volume 7.1; Monocytes # (A) 0.3 k/uL (0-1.0); Monocytes % (A) 4 %; Neutrophils # (A) 6.3 k/uL (1.3-7.7); Neutrophils % (A) 78 %; Platelet Count 236 k/uL (150-450); RBC 3.38 m/uL (3.80-5.40); RDW 14.2 % (11.5-15.5); WBC 8.1 k/uL (3.8-10.6)
[2017-08-05 07:49] LABS: Albumin 2.8 g/dL (3.5-5.0); Calcium 8.5 mg/dL (8.4-10.2); Magnesium 1.3 mg/dL (1.6-2.3); Potassium 4.6 mmol/L (3.5-5.1); Total Bilirubin 0.3 mg/dL (0.2-1.3); Total Protein 5.9 g/dL (6.3-8.2)
[2017-08-05] MEDS: amLODIPine 5 MG TAB PO SCH (08:51)
[2017-08-05] MEDS: ASPIRIN 81 MG PO SCH (08:51)
[2017-08-05] MEDS: ESCITALOPRAM 20 MG TAB PO SCH (08:51)
[2017-08-05] MEDS: PANTOPRAZOLE 40 MG/10 ML VIAL IV SCH (08:52)
[2017-08-05] MEDS: LEVOFLOXACIN 250MG-D5W PMX 250 MG in DEXTROSE/WATER 1 50ML.BAG IVPB SCH (10:41)
[2017-08-05] MEDS ORDERED: Magnesium Replacement Protocol 1 EACH MISC MISCELLANE PRN (10:53)
[2017-08-05] MEDS ORDERED: LEVOFLOXACIN 500MG-D5W PMX 500 MG in DEXTROSE/WATER 1 100ML.BAG IVPB SCH (11:00)
[2017-08-05 11:06] LABS: Glucose,Whole Blood 187 mg/dL (75-99)
[2017-08-05] MEDS ORDERED: LEVOFLOXACIN 250MG-D5W PMX 250 MG in DEXTROSE/WATER 1 50ML.BAG IVPB ONE (12:00)
--- NOTE | 2017-08-05 12:16 | P.PN ---
Subjective Progress Note Date: 08/05/17 62-year-old female who presented to the emergency room with a chief complaint of nausea, vomiting, and diarrhea. The patient states over the last six months she had has vomiting and diarrhea on and off. She reports it has gotten worse over the past week. She reports that Dr. Washington referred her to a GI specialist. She states she had an appointment with them yesterday. They ordered lab work and a stool sample. She reports dropping off a stool sample today. She states she had an EGD and colonoscopy in 2016 or 2017. She believes it may have been at [facility]. She denies fever or chills. Denies sick contacts. She denies hematochezia or melena. Denies hematemesis. She denies abdominal pain. She denies chest pain or pressure. Denies shortness of breath or cough. She denies urinary symptoms such as urgency, frequency, malodorous urine, or dysuria. The patient has a history of diabetes mellitus, hypertension, hyperlipidemia, gastroesophageal reflux disease, osteoarthritis, and depression. She is a current everyday cigarette smoker. She usually smokes half a pack per day. She reports only smoking 1-2 cigarettes over the last few days secondary to not feeling well. She denies any alcohol use. She states she had her gallbladder out many years ago. She also reports that she has been seen a knock out hand for a skin condition recently, but she is unable to recall the name of the condition. She states she has been receiving IM steroid injections every 2 weeks and just recently received her second injection. She was also prescribed a steroid cream. CT abdomen and pelvis: Left perinephric fat stranding and proximal uroepithelial thickening raising suspicion for pyelonephritis. Correlate with urinalysis. Bilateral nonobstructing renal calculi are seen with no evidence of obstructive uropathy or hydronephrosis. Diffuse gastric body circumferential thickening may relate to incomplete distention or gastritis. Endoscopy could be performed for further evaluation. Submucosal deposition of fat within the ascending colon can be seen in chronic inflammatory bowel disease. Punctate calcification likely within the cystic duct remnant. No dilated common bile duct. Chronic diverticulosis without evidence of acute diverticulitis. Laboratory data: WBC 16.5. Hemoglobin 11.1. Count 220. Sodium 127. Potassium 4.8. Chloride 96. Carbon dioxide 17. BUN 34. Creatinine 2.6. GFR 19. Glucose 142. Magnesium 1.2. AST 45. ALT 29. Alkaline phosphatase 117. Total bilirubin 0.9. Amylase 119. Lipase 985. Lactic acid: 0.7 Acetone: negative Urinalysis reveals: Turbid yellow urine, 2+ proteinuria, small blood, large leukocyte esterase, WBCs greater than 182, Many WBC clumps The patient was admitted to the hospital under the care of Dr. Washington. 08/05/2017 Patient seen and examined at the bedside. Patient states her nausea and vomiting has improved. Denies diarrhea this morning. Patient denies abdominal pain or discomfort. Patient was evaluated by GI. Plan is for outpatient EGD and colonoscopy. Amylase has increased from 128 to 156. Lipase has increased from 1199 to 1319. Urine culture is positive for E. coli. Patient remains on Levaquin. Magnesium is low at 1.3 today. BUN has improved to 11. Creatinine is 0.98. Objective - Vital Signs Vital signs: Vital Signs Temp 98.4 F 08/05/17 05:35 Pulse 64 08/05/17 08:50 Resp 20 08/05/17 08:50 BP 165/79 08/05/17 05:35 Pulse Ox 95 08/05/17 05:35 Intake & Output 08/04/17 08/05/17 08/05/17 18:59 06:59 18:59 Intake Total 800 2960 Balance 800 2960 Weight 71.214 kg Intake: IV 800 Sodium Chloride 0.9% 1, 800 000 ml @ 100 mls/hr IV . Q10H EMILIANO Rx#:[id number] Intake, IV Titration 1700 Amount Sodium Chloride 0.9% 1, 1700 000 ml @ 100 mls/hr IV . Q10H EMILIANO Rx#:[id number] Oral 1260 Other: Voiding Method Toilet Toilet # Voids 2 - Constitutional Constitutional Comment(s): 62-year-old female General appearance: Present: average body habitus, cooperative - EENT Eyes: Present: EOMI, PERRLA ENT: Present: hearing grossly normal - Neck Neck: Present: normal ROM - Respiratory Respiratory: bilateral: CTA - Cardiovascular Rhythm: regular Heart sounds: normal: S1, S2 - Gastrointestinal General gastrointestinal: Present: normal bowel sounds, soft - Integumentary Integumentary Comment(s): Flaky patches of skin with areas of erythema to the bilateral upper extremities and face. Patient states recent diagnosed with skin condition but does not remember the name - Neurologic Neurologic: Present: CNII-XII intact - Musculoskeletal Musculoskeletal: Present: strength equal bilaterally - Psychiatric Psychiatric: Present: A&O x's 3, appropriate affect, intact judgment & insight - Labs CBC & Chem 7: 08/05/17 07:18 08/05/17 07:18 Labs: Abnormal Lab Results - Last 24 Hours (Table) 08/04/17 08/04/17 08/04/17 Range/Units 12:08 17:09 20:15 RBC (3.80-5.40) m/uL Hgb (11.4-16.0) gm/dL Hct (34.0-46.0) % Chloride (98-107) mmol/L Carbon Dioxide (22-30) mmol/L POC Glucose (mg/dL) 124 H 136 H 196 H (75-99) mg/dL Magnesium (1.6-2.3) mg/dL AST (14-36) U/L Total Protein (6.3-8.2) g/dL Albumin (3.5-5.0) g/dL Amylase (30-110) U/L Lipase (23-300) U/L 08/05/17 08/05/17 08/05/17 Range/Units 07:18 07:18 11:05 RBC 3.38 L (3.80-5.40) m/uL Hgb 10.1 L (11.4-16.0) gm/dL Hct 30.5 L (34.0-46.0) % Chloride 112 H (98-107) mmol/L Carbon Dioxide 19 L (22-30) mmol/L POC Glucose (mg/dL) 187 H (75-99) mg/dL Magnesium 1.3 L (1.6-2.3) mg/dL AST 44 H (14-36) U/L Total Protein 5.9 L (6.3-8.2) g/dL Albumin 2.8 L (3.5-5.0) g/dL Amylase 156 H (30-110) U/L Lipase 1319 H (23-300) U/L Microbiology - Last 24 Hours (Table) 08/02/17 11:44 Urine Culture - Final Urine,Voided Escherichia coli Assessment and Plan Plan: ASSESSMENT: Nausea, vomiting, diarrhea intermittently for 6 months that has increased in severity x 1 week, etiology unclear Elevated amylase and lipase, pancreatitis ruled out per gastroenterology Left pyelonephritis, present on admission, patient denies urinary symptoms, urine culture positive for E. coli Acute renal failure, creatinine 2.6 on admission, baseline 0.7, likely due to hypovolemia secondary to persistent vomiting and diarrhea and pyelonephritis Bilateral nonobstructing renal calculi, no evidence of obstructive uropathy or hydronephrosis Diabetes mellitus, type II Diverticulosis, no evidence of diverticulitis per CT Hyperlipidemia Hypertension Osteoarthritis Gastroesophageal reflux disease History of depression Nicotine dependence, patient is a current cigarette smoker PLAN: GI on consult. Appreciate recommendations and input Patient to undergo EGD and colonoscopy on an outpatient basis Decrease IV fluids to 50 mL an hour Continue Levaquin. Increase dose to 500 mg daily Replace magnesium. Repeat in a.m. Home meds as appropriate Resume losartan/hydrochlorothiazide, meloxicam, and metformin GI prophylaxis: Protonix 40 mg IV Daily DVT prophylaxis: SCDs to bilateral lower extremities Monitor vital signs and address as appropriate Further recommendations pending patient's course Possible discharge home tomorrow if patient remains stable Nurse practitioner note has been reviewed by physician. Signing provider agrees with the documented findings, assessment, and plan of care.
[2017-08-05] MEDS: MAGNESIUM SULFATE-D5W PMX 1 GM in DEXTROSE/WATER 1 100ML.BAG IVPB SCH ×3 (14:29→16:52)
[2017-08-05 16:59] LABS: Glucose,Whole Blood 226 mg/dL (75-99)
--- NOTE | 2017-08-05 18:50 | PN ---
PROGRESS NOTE DATE OF SERVICE: August 05, 2017 The patient is a 62-year-old pleasant white female admitted to the hospital with nausea, vomiting, diarrhea of several weeks duration. She was diagnosed with UTI and started on broad-spectrum antibiotics and over the last 2 days the symptoms have completely resolved. The nausea and vomiting has improved. The diarrhea has resolved. In fact, she had only 1 bowel movement today. Stool for C diff toxin was negative. She was also noted to have mild elevation of amylase and lipase which continued to remain persistently elevated. However, she denies any abdominal pain. PHYSICAL EXAMINATION: Appears comfortable no apparent distress. VITAL SIGNS: Stable. Blood pressure is 165/79, pulse rate is 64, temperature 98.4. HEENT examination unremarkable. Conjunctivae pink. Sclerae anicteric. Oral cavity no lesions. NECK: No jugular venous distention or lymph node enlargement. CHEST: Clear to auscultation. HEART: Regular rate and rhythm. ABDOMEN: Soft. Bowel sounds are positive. EXTREMITIES: No pedal edema. SKIN: No rashes. NEUROLOGIC: Alert and oriented x3. No focal deficits. LAB: From today showed a WBC 8.5, hemoglobin 10.1, platelets are normal. Lipase is 1311 and amylase is 359. ALT, AST, bilirubin and alkaline phosphatase are within normal limits. IMPRESSION: 1. Urosepsis on broad-spectrum antibiotics. 2. Nausea, vomiting, and diarrhea has completely resolved. Stool for C diff toxin has been negative. Cultures are negative. 3. Asymptomatic elevation of amylase and lipase and clinically patient does not have any abdominal pain and CT of the abdomen done 2 days ago showed normal-appearing pancreas, most likely nonspecific elevation of amylase and lipase and doubt clinical pancreatitis. RECOMMENDATIONS: 1. Continue with antibiotics. 2. Repeat labs in the morning. 3. Possible discharge home in the morning. Thank you for this consultation. MMODL / IJN: [id number] /
[2017-08-05 20:16] LABS: Glucose,Whole Blood 163 mg/dL (75-99)
[2017-08-06 07:06] LABS: Glucose,Whole Blood 139 mg/dL (75-99)
[2017-08-06] MEDS ORDERED: metFORMIN 500 MG TAB PO SCH (07:30)
[2017-08-06 07:34] VITALS: BP 155/73; PULSE 59; RESP 20; TEMP 98.2
[2017-08-06] MEDS: INSULIN ASPART 100 UNIT/ML 1 ML 10 ML VIAL SQ SCH ×2 (07:43→12:32)
[2017-08-06] MEDS: ASPIRIN 81 MG PO SCH (07:44)
[2017-08-06] MEDS: ESCITALOPRAM 20 MG TAB PO SCH (07:45)
[2017-08-06] MEDS: amLODIPine 5 MG TAB PO SCH (07:45)
[2017-08-06 07:49] LABS: ALT 31 U/L (9-52); AST 36 U/L (14-36); Albumin 2.7 g/dL (3.5-5.0); Alkaline Phosphatase 114 U/L (38-126); Amylase 126 U/L (30-110); Anion Gap 12 mmol/L; Blood Urea Nitrogen 6 mg/dL (7-17); Calcium 8.8 mg/dL (8.4-10.2); Carbon Dioxide 21 mmol/L (22-30); Chloride 110 mmol/L (98-107); Glucose 131 mg/dL (74-99); Lipase 1081 U/L (23-300); Magnesium 1.5 mg/dL (1.6-2.3); Potassium 4.2 mmol/L (3.5-5.1); Sodium 143 mmol/L (137-145); Total Bilirubin 0.3 mg/dL (0.2-1.3); Total Protein 5.7 g/dL (6.3-8.2)
[2017-08-06] MEDS: INSULIN DETEMIR 100 UNIT/ML 10 ML VIAL SQ SCH (08:26)
[2017-08-06] MEDS ORDERED: LOSARTAN-HCTZ 50-12.5 MG 1 EACH TAB PO SCH (09:00)
[2017-08-06] MEDS ORDERED: MELOXICAM 7.5 MG TAB PO SCH (09:00)
[2017-08-06] MEDS ORDERED: LOSARTAN 50 MG TAB PO SCH (09:00)
[2017-08-06] MEDS ORDERED: PANTOPRAZOLE 40 MG TABLET PO SCH (09:00)
--- NOTE | 2017-08-06 10:16 | P.DS ---
Providers Date of admission: 08/02/17 13:05 Expected date of discharge: 08/06/17 Attending physician: Buster Washington Consults: 08/02/17 13:49 Consult Physician Routine Consulting Provider: Maria Esther Rene Consult Reason/Comments: N/V/D, pancreatitis Do you want consulting provider notified?: Yes Primary care physician: Buster Washington Hospital Course: 62-year-old female who presented to the emergency room with a chief complaint of nausea, vomiting, and diarrhea. The patient states over the last six months she had has vomiting and diarrhea on and off. She reports it has gotten worse over the past week. She reports that Dr. Washington referred her to a GI specialist. She states she had an appointment with them yesterday. They ordered lab work and a stool sample. She reports dropping off a stool sample today. She states she had an EGD and colonoscopy in 2016 or 2017. She believes it may have been at [facility]. She denies fever or chills. Denies sick contacts. She denies hematochezia or melena. Denies hematemesis. She denies abdominal pain. She denies chest pain or pressure. Denies shortness of breath or cough. She denies urinary symptoms such as urgency, frequency, malodorous urine, or dysuria. The patient has a history of diabetes mellitus, hypertension, hyperlipidemia, gastroesophageal reflux disease, osteoarthritis, and depression. She is a current everyday cigarette smoker. She usually smokes half a pack per day. She reports only smoking 1-2 cigarettes over the last few days secondary to not feeling well. She denies any alcohol use. She states she had her gallbladder out many years ago. She also reports that she has been seen a deputy manager for a skin condition recently, but she is unable to recall the name of the condition. She states she has been receiving IM steroid injections every 2 weeks and just recently received her second injection. She was also prescribed a steroid cream. CT abdomen and pelvis: Left perinephric fat stranding and proximal uroepithelial thickening raising suspicion for pyelonephritis. Correlate with urinalysis. Bilateral nonobstructing renal calculi are seen with no evidence of obstructive uropathy or hydronephrosis. Diffuse gastric body circumferential thickening may relate to incomplete distention or gastritis. Endoscopy could be performed for further evaluation. Submucosal deposition of fat within the ascending colon can be seen in chronic inflammatory bowel disease. Punctate calcification likely within the cystic duct remnant. No dilated common bile duct. Chronic diverticulosis without evidence of acute diverticulitis. Laboratory data: WBC 16.5. Hemoglobin 11.1. Count 220. Sodium 127. Potassium 4.8. Chloride 96. Carbon dioxide 17. BUN 34. Creatinine 2.6. GFR 19. Glucose 142. Magnesium 1.2. AST 45. ALT 29. Alkaline phosphatase 117. Total bilirubin 0.9. Amylase 119. Lipase 985. Lactic acid: 0.7 Acetone: negative Urinalysis reveals: Turbid yellow urine, 2+ proteinuria, small blood, large leukocyte esterase, WBCs greater than 182, Many WBC clumps The patient was admitted to the hospital under the care of Dr. Washington. Patient was evaluated by GI. Plan is for outpatient EGD and colonoscopy. GI does not suspect that the patient has pancreatitis as computed tomography scan shows normal appearing pancreas and elevation is most likely nonspecific. Urine culture is positive for E. coli. Patient remains on Levaquin. Her nausea , vomiting, and diarrhea have significantly improved. Patient was deemed stable for discharge per Dr. Washington. She is to follow up on an outpatient basis with Dr. Washington and Dr. Rene. DISCHARGE DIAGNOSIS: Nausea, vomiting, diarrhea intermittently for 6 months that has increased in severity x 1 week, etiology unclear, improved at the time of discharge, patient to follow up outpatient with GI Elevated amylase and lipase, pancreatitis ruled out per gastroenterology Left pyelonephritis, present on admission, patient denies urinary symptoms, urine culture positive for E. coli Acute renal failure, creatinine 2.6 on admission, baseline 0.7, likely due to hypovolemia secondary to persistent vomiting and diarrhea, resolved at the time of discharge Bilateral nonobstructing renal calculi, no evidence of obstructive uropathy or hydronephrosis Diabetes mellitus, type II Diverticulosis, no evidence of diverticulitis per CT Hyperlipidemia Hypertension Osteoarthritis Gastroesophageal reflux disease History of depression Nicotine dependence, patient is a current cigarette smoker Nurse practitioner note has been reviewed by physician. Signing provider agrees with the documented findings, assessment, and plan of care. Patient Condition at Discharge: Stable Plan - Discharge Summary Discharge Rx Participant: No New Discharge Prescriptions: New Levofloxacin [Levaquin] 500 mg PO DAILY 5 Days #5 tab Continue metFORMIN HCL [Glucophage] 500 mg PO BID Simvastatin [Zocor] 40 mg PO HS Calcium Carbonate/Vitamin D3 [Caltrate 600 Plus D3 Tablet] 1 tab PO DAILY Escitalopram [Lexapro] 20 mg PO DAILY Insulin Lispro [humaLOG Kwikpen] See Protocol SQ AC-TID Aspirin EC [Ecotrin Low Dose] 81 mg PO DAILY Omeprazole [PriLOSEC] 20 mg PO DAILY Multivit-Min/Iron/Folic/Lutein [Centrum Silver Women Tablet] 1 tab PO DAILY amLODIPine [Norvasc] 5 mg PO DAILY Meloxicam [Mobic] 15 mg PO DAILY Insulin Glargine,Hum.rec.anlog [Basaglar Kwikpen U-100] 10 unit SQ HS Insulin Glargine,Hum.rec.anlog [Basaglar Kwikpen U-100] 24 unit SQ QAM Losartan/Hydrochlorothiazide [Losartan-Hctz 100-12.5 mg Tab] 1 tab PO DAILY Discharge Medication List Calcium Carbonate/Vitamin D3 [Caltrate 600 Plus D3 Tablet] 1 tab PO DAILY [History] Simvastatin [Zocor] 40 mg PO HS 11/30/13 [History] metFORMIN HCL [Glucophage] 500 mg PO BID 11/30/13 [History] Aspirin EC [Ecotrin Low Dose] 81 mg PO DAILY 03/29/16 [History] Escitalopram [Lexapro] 20 mg PO DAILY 03/29/16 [History] Insulin Lispro [humaLOG Kwikpen] See Protocol SQ AC-TID 03/29/16 [History] Multivit-Min/Iron/Folic/Lutein [Centrum Silver Women Tablet] 1 tab PO DAILY [History] Omeprazole [PriLOSEC] 20 mg PO DAILY 03/29/16 [History] Insulin Glargine,Hum.rec.anlog [Basaglar Kwikpen U-100] 10 unit SQ HS 08/02/17 [ History] Insulin Glargine,Hum.rec.anlog [Basaglar Kwikpen U-100] 24 unit SQ QAM 08/02/17 [History] Losartan/Hydrochlorothiazide [Losartan-Hctz 100-12.5 mg Tab] 1 tab PO DAILY 03/21 [History] Meloxicam [Mobic] 15 mg PO DAILY 08/02/17 [History] amLODIPine [Norvasc] 5 mg PO DAILY 08/02/17 [History] Levofloxacin [Levaquin] 500 mg PO DAILY 5 Days #5 tab 08/06/17 [Rx] Follow up Appointment(s)/Referral(s): Maria Esther Rene MD [STAFF PHYSICIAN] - 1 Week Buster Washington MD [Primary Care Provider] - 1-2 days Discharge Disposition: HOME SELF-CARE
[2017-08-06] MEDS: MAGNESIUM SULFATE-D5W PMX 1 GM in DEXTROSE/WATER 1 100ML.BAG IVPB SCH ×2 (10:38→11:41)
[2017-08-06] MEDS ORDERED: LEVOFLOXACIN 500MG-D5W PMX 500 MG in DEXTROSE/WATER 1 100ML.BAG IVPB SCH (11:00)
[2017-08-06] MEDS ORDERED: LEVOFLOXACIN 500 MG TAB PO SCH (11:00)
[2017-08-06 11:19] LABS: Glucose,Whole Blood 149 mg/dL (75-99)
== END 2017-08-06 13:10 | disposition home or self-care (01) | DRG 690 ==
LOC: EC 09:23 → 5MS5E 13:05
PROVIDERS: ADMIT Family Medicine; ATTEND Family Medicine
DX: N10 Acute pyelonephritis (principal); N17.9 Acute kidney failure, unspecified; B96.20 Unspecified Escherichia coli [E. coli] as the cause of diseases classified elsewhere; E86.0 Dehydration; E78.5 Hyperlipidemia, unspecified; E11.9 Type 2 diabetes mellitus without complications; E86.1 Hypovolemia; I10 Essential (primary) hypertension; N20.0 Calculus of kidney; E89.0 Postprocedural hypothyroidism; K57.30 Diverticulosis of large intestine without perforation or abscess without bleeding; M15.9 Polyosteoarthritis, unspecified; F41.9 Anxiety disorder, unspecified; M51.36 Other intervertebral disc degeneration, lumbar region; M48.061 Spinal stenosis, lumbar region without neurogenic claudication; K29.70 Gastritis, unspecified, without bleeding; R21 Rash and other nonspecific skin eruption; R74.8 Abnormal levels of other serum enzymes; K21.9 Gastro-esophageal reflux disease without esophagitis; F17.210 Nicotine dependence, cigarettes, uncomplicated; Z71.6 Tobacco abuse counseling; F32.9 Major depressive disorder, single episode, unspecified; Z79.1 Long term (current) use of non-steroidal anti-inflammatories (NSAID); Z79.82 Long term (current) use of aspirin; Z79.4 Long term (current) use of insulin; Z79.899 Other long term (current) drug therapy; Z90.710 Acquired absence of both cervix and uterus; Z90.49 Acquired absence of other specified parts of digestive tract; Z87.81 Personal history of (healed) traumatic fracture; Z82.49 Family history of ischemic heart disease and other diseases of the circulatory system; Z80.42 Family history of malignant neoplasm of prostate; Z80.8 Family history of malignant neoplasm of other organs or systems; Z83.49 Family history of other endocrine, nutritional and metabolic diseases
CPT/HCPCS: 36415; 74176; 80053; 81001; 82009; 82150; 83036; 83516; 83605; 83630; 83690; 83735; 85025; 86140; 87045; 87046; 87077; 87086; 87186; 87324; 87328; 87329; 96361; 96374; 96375; 99285

== ENCOUNTER 2017-08-07 16:38 | Inpatient (IN) | payer OTHER ==
[2017-08-07] MEDS ORDERED: HEPARIN SODIUM,PORCINE 5,000 UNIT/ML 1 ML VIAL IV STA (16:59)
[2017-08-07] MEDS ORDERED: ASPIRIN 81 MG PO STA (16:59)
[2017-08-07] MEDS ORDERED: MIDAZOLAM 2 MG/2 ML VIAL ONE (17:05)
[2017-08-07] MEDS ORDERED: fentaNYL (PF) 50 MCG/ML 2 ML AMP ONE (17:06)
[2017-08-07] MEDS: NITROGLYCERIN SL TABS 0.4 MG TAB SUBLINGUAL STA ×2 (17:10→17:15)
[2017-08-07] MEDS ORDERED: ATORVASTATIN 80 MG TAB PO STA (17:11)
[2017-08-07] MEDS ORDERED: HYDROmorphone 0.5 MG/0.5 ML SYRINGE IVP STA (17:18)
[2017-08-07 17:19] LABS: Basophils % (A) 0 %; Eosinophils # (A) 0.2 k/uL (0-0.7); Eosinophils % (A) 2 %; HCT 31.3 % (34.0-46.0); HGB 10.3 gm/dL (11.4-16.0); Lymphocytes # (A) 1.5 k/uL (1.0-4.8); Lymphocytes % (A) 16 %; MCV 87.8 fL (80.0-100.0); Mean Platelet Volume 7.2; Monocytes # (A) 0.3 k/uL (0-1.0); Monocytes % (A) 4 %; Neutrophils # (A) 7.5 k/uL (1.3-7.7); Neutrophils % (A) 78 %; Platelet Count 347 k/uL (150-450); RBC 3.56 m/uL (3.80-5.40); RDW 14.1 % (11.5-15.5); WBC 9.6 k/uL (3.8-10.6)
--- NOTE | 2017-08-07 17:24 | ED ---
Chest Pain HPI - General Chief Complaint: Chest Pain Stated Complaint: chest pain Time Seen by Provider: 08/07/17 16:56 Source: patient, family, RN notes reviewed, old records reviewed Mode of arrival: ambulatory Limitations: no limitations - History of Present Illness Initial Comments: This is a 8-year-old female with a history of diabetes and recent admission for urinary tract infection dehydration who states she had the onset around 3:30 this afternoon of retrosternal chest pain going down her left arm. She states it was severe 9/10 severity is unable to fully describe it. She was there she states some shortness of breath with it no sweats or chills. She was brought in by family for evaluation. No prior history of heart disease. MD Complaint: chest pain - Related Data Home Medications Medication Instructions Recorded Confirmed Calcium Carbonate/Vitamin D3 1 tab PO DAILY 11/30/13 08/07/17 [Caltrate 600 Plus D3 Tablet] Simvastatin [Zocor] 40 mg PO HS 11/30/13 08/07/17 metFORMIN HCL [Glucophage] 500 mg PO BID 11/30/13 08/07/17 Aspirin EC [Ecotrin Low Dose] 81 mg PO DAILY 03/29/16 08/07/17 Escitalopram [Lexapro] 20 mg PO DAILY 03/29/16 08/07/17 Insulin Lispro [humaLOG Kwikpen] See Protocol SQ AC-TID 03/29/16 08/07/17 Multivit-Min/Iron/Folic/Lutein 1 tab PO DAILY 03/29/16 08/07/17 [Centrum Silver Women Tablet] Omeprazole [PriLOSEC] 20 mg PO DAILY 03/29/16 08/07/17 Insulin Glargine,Hum.rec.anlog 10 unit SQ HS 08/02/17 08/07/17 [Basaglar Kwikpen U-100] Insulin Glargine,Hum.rec.anlog 24 unit SQ QA 08/02/17 08/07/17 [Basaglar Kwikpen U-100] Losartan/Hydrochlorothiazide 1 tab PO DAILY 08/02/17 08/07/17 [Losartan-Hctz 100-12.5 mg Tab] Meloxicam [Mobic] 15 mg PO DAILY 08/02/17 08/07/17 amLODIPine [Norvasc] 5 mg PO DAILY 08/02/17 08/07/17 Previous Rx's Medication Instructions Recorded Fluconazole [Diflucan] 150 mg PO ONCE #1 tab 08/06/17 Levofloxacin [Levaquin] 500 mg PO DAILY 5 Days #5 tab 08/06/17 Allergies Allergy/AdvReac Type Severity Reaction Status Date / Time No Known Allergies Allergy Verified 08/07/17 17:08 Review of Systems ROS Statement: Those systems with pertinent positive or pertinent negative responses have been documented in the HPI. ROS Other: All systems not noted in ROS Statement are negative. EKG Findings - EKG Results: EKG: interpreted by ERMD, sinus rhythm (Sinus rhythm evidence of ST elevation in leads II, III, and F aVF with reciprocal aVL changes this is changed from an EKG dated 11/30/13 and 12/01/13. Rate was 63. Interval 122 QRS 90 QT since QTC of 434/444) Past Medical History Past Medical History: Diabetes Mellitus, GERD/Reflux, Hyperlipidemia, Hypertension, Osteoarthritis (OA), Thyroid Disorder Additional Past Medical History / Comment(s): IDDM type II, pt has for past several months problems with skin condition scattered over body-she states she is receiving steroid injections and has a creme for this and that it is not contagious but she cannot recall name of this condition, generalized arthritis, thyroid nodules-surgically removed. History of Any Multi-Drug Resistant Organisms: None Reported Past Surgical History: Section, Cholecystectomy, Heart Catheterization , Hysterectomy, Orthopedic Surgery Additional Past Surgical History / Comment(s): PARTIAL HYSTERECTOMY; THYROID SURGERY FOR NODULES; L HEEL SPUR REMOVAL; BILATERAL CARPAL TUNNEL REPAIR; PIN/ PLATE/GRAFT/SCREWS LEFT WRIST D/T FRACTURE, COLONOSCOPY-NORMAL, 2013 CARDIAC CATH NORMAL. Past Anesthesia/Blood Transfusion Reactions: No Reported Reaction Past Psychological History: Depression Smoking Status: Current every day smoker Past Alcohol Use History: None Reported Past Drug Use History: None Reported - Past Family History Father Family Medical History: Cancer, Coronary Artery Disease (CAD) Additional Family Medical History / Comment(s): Quadruple bypass, 2 or 3 stents placed (pt can't remember), prostrate cancer, basal skin cancer. Father is living. Mother Family Medical History: Hyperlipidemia, Hypertension Additional Family Medical History / Comment(s): Mother is living. General Exam - General Exam Comments Initial Comments: This is a well-developed well-nourished awake alert oriented 3 female Limitations: no limitations General appearance: alert, in no apparent distress Head exam: Present: atraumatic, normocephalic, normal inspection Eye exam: Present: normal appearance, PERRL, EOMI. Absent: scleral icterus, conjunctival injection, periorbital swelling ENT exam: Present: normal exam, mucous membranes moist Neck exam: Present: normal inspection. Absent: tenderness, meningismus, lymphadenopathy Respiratory exam: Present: normal lung sounds bilaterally. Absent: respiratory distress, wheezes, rales, rhonchi, stridor Cardiovascular Exam: Present: regular rate, normal rhythm, normal heart sounds. Absent: systolic murmur, diastolic murmur, rubs, gallop, clicks GI/Abdominal exam: Present: soft, normal bowel sounds. Absent: distended, tenderness, guarding, rebound, rigid Extremities exam: Present: normal inspection, full ROM, normal capillary refill. Absent: tenderness, pedal edema, joint swelling, calf tenderness Back exam: Present: normal inspection Neurological exam: Present: alert, oriented X3, CN II-XII intact Psychiatric exam: Present: normal affect, normal mood Skin exam: Present: warm, dry, intact, normal color. Absent: rash Course Vital Signs 08/07/17 08/07/17 08/07/17 16:45 17:00 17:09 Temperature 98.4 F Pulse Rate 65 76 72 Respiratory 18 18 18 Rate Blood Pressure 136/76 167/82 149/68 O2 Sat by Pulse 100 100 100 Oximetry 08/07/17 08/07/17 08/07/17 17:15 17:20 17:24 Temperature Pulse Rate 72 74 86 Respiratory 18 18 18 Rate Blood Pressure 116/59 125/58 104/56 O2 Sat by Pulse 98 98 Oximetry 08/07/17 17:30 Temperature Pulse Rate 75 Respiratory 18 Rate Blood Pressure 105/54 O2 Sat by Pulse 99 Oximetry - Reevaluation(s) Reevaluation #1: 08/07/17 17:22 A STEMI alert was immediately called. Extension Course Coordinator was notified and did discuss the case with Dr. Segal who did respond correctly 1715 p.m. The patient did get heparin and nitroglycerin Lipitor and 1 mg of Dilaudid eventually has pain only improved initially from a 9 to an 8. Reevaluation #2: 08/07/17 17:23 I did discuss case with Dr. Washington he is aware of the situation. Reevaluation #3: 08/07/17 17:27 Patient is still stating in 8/10 chest pain and her vital signs. She is awake alert oriented 3. Chest Pain MDM - MDM I did review the portable chest x-ray no evidence of acute findings. This prior to being discharged to the Extension Course Coordinator patient's pain was down to 7/10. She remains awake alert oriented x3 patient is admitted the Extension Course Coordinator at this time. Critical Care Time Critical Care Time: Yes Critical Care Time: 33 minutes total critical care time which includes the initial presentation with history physical labs x-rays and EKGs. Review of old charting that was available. Multiple reevaluation of the patient to responsive therapy discussion with both Dr. Washington and Dr. Segal. Admission orders documentation the above discussed with family members. Disposition Clinical Impression: ST elevation myocardial infarction (STEMI), Chest pain Disposition: ADMITTED IP TO THIS HOSP Condition: Serious Referrals: Buster Washington MD [Primary Care Provider] - 1-2 days
--- NOTE | 2017-08-07 17:25 | XR ---
EXAMINATION: XR chest 1V portable DATE AND TIME: 08/07/2017 5:14 PM ORDERING PROVIDER: Kieran López MD CLINICAL INDICATION: pain, stemi TECHNIQUE: Semiupright AP chest x-ray COMPARISON: 11/30/2013 DESCRIPTION: The lungs are clear. The pleural spaces are negative. It is noted that the radiograph is AP, and not PA, which will artificially increase the appearance of the heart size. Notwithstanding, the cardiac silhouette is moderately enlarged, a change since the p rior study. Differential is cardiomegaly and/or pericardial effusion. The mediastinal and pleural silhouettes are unremarkable. The skeletal structures are intact without focal findings. The soft tissues are unremarkable. IMPRESSION: 1. Moderately enlarged cardiac silhouette. 2. No acute pulmonary or pleural process.
[2017-08-07 17:26] LABS: INR 1.1 (<1.2); Partial Thromboplastin Time 25.5 sec (22.0-30.0)
[2017-08-07 17:30] LABS: ALT 38 U/L (9-52); AST 32 U/L (14-36); Albumin 3.5 g/dL (3.5-5.0); Alkaline Phosphatase 137 U/L (38-126); Anion Gap 15 mmol/L; Blood Urea Nitrogen 7 mg/dL (7-17); Calcium 9.4 mg/dL (8.4-10.2); Carbon Dioxide 23 mmol/L (22-30); Chloride 103 mmol/L (98-107); Glucose 157 mg/dL (74-99); Magnesium 1.2 mg/dL (1.6-2.3); Potassium 4.2 mmol/L (3.5-5.1); Sodium 141 mmol/L (137-145); Total Bilirubin 0.5 mg/dL (0.2-1.3); Total Protein 7.1 g/dL (6.3-8.2)
[2017-08-07] MEDS ORDERED: diphenhydrAMINE 50 MG/ML 1 ML VIAL ONE (17:47)
[2017-08-07 17:56] LABS: Creatine Kinase MB 0.4 ng/mL (0.0-2.4); Troponin I 0.012 ng/mL (0.000-0.034)
[2017-08-07] MEDS ORDERED: diphenhydrAMINE 50 MG/ML 1 ML VIAL IVP ONE (18:00)
[2017-08-07] MEDS ORDERED: MIDAZOLAM 2 MG/2 ML VIAL IVP ONE (18:00)
[2017-08-07] MEDS ORDERED: SODIUM CHLORIDE 0.9% 1,000 ML IV ONE (18:00)
[2017-08-07] MEDS ORDERED: LIDOCAINE 2% INJ 20 MG/ML SQ ONE (18:02)
[2017-08-07] MEDS ORDERED: BIVALIRUDIN BOLUS 250 MG/50 ML IV ONE (18:08)
[2017-08-07] MEDS ORDERED: BIVALIRUDIN 250 MG in SODIUM CHLORIDE 0.9% 50 ML IV ONE (18:09)
[2017-08-07] MEDS ORDERED: ATROPINE SULFATE 0.1 MG/ML 10ML SYRINGE IVP ONE (18:13)
[2017-08-07] MEDS ORDERED: DOPamine DRIP 800 MG in DEXTROSE/WATER 1 500ML.BAG IV ONE (18:16)
[2017-08-07] MEDS: NITROGLYCERIN 1000MCG/10ML SYRINGE INTRACORON ONE ×2 (18:24→18:32)
[2017-08-07] MEDS ORDERED: METOPROLOL TARTRATE 5 MG/5 ML VIAL IVP ONE ×2 (18:35→18:37)
[2017-08-07] MEDS ORDERED: IOPAMIDOL-370 125ML BTL INJ ONE (18:35)
[2017-08-07] MEDS ORDERED: PRASUGREL 10 MG TAB ONE (18:40)
[2017-08-07] MEDS ORDERED: MORPHINE SULF 5MG/10ML VL ONE (18:41)
[2017-08-07] MEDS ORDERED: MORPHINE SULF 5MG/10ML VL IVP ONE (18:42)
[2017-08-07] MEDS ORDERED: PRASUGREL 10 MG TAB PO ONE (18:43)
[2017-08-07] MEDS ORDERED: IOPAMIDOL-370 50ML BTL INJ ONE (18:44)
[2017-08-07] MEDS ORDERED: NITROGLYCERIN SL TABS 0.4 MG TAB SUBLINGUAL PRN (19:07)
[2017-08-07] MEDS ORDERED: RX INFO: IV CONTRAST WAS GIVEN 1 EACH MISC MISCELLANE PRN (19:07)
[2017-08-07] MEDS ORDERED: ATROPINE SULFATE 0.1 MG/ML 10ML SYRINGE IV PRN (19:07)
[2017-08-07] MEDS ORDERED: MAG HYDROX/AL HYDROX/SIMETH 30 ML CUP PO PRN (19:07)
[2017-08-07] MEDS ORDERED: ZOLPIDEM 5 MG TAB PO PRN (19:07)
[2017-08-07 19:27] LABS: Glucose,Whole Blood 167 mg/dL (75-99)
[2017-08-07] MEDS: SODIUM CHLORIDE 0.9% 1,000 ML IV SCH (19:30)
--- NOTE | 2017-08-07 19:52 | CONS ---
CONSULTATION Mrs. Torres is a 62-year-old gentle lady who was seen by me after she arrived in the cardiac labor supervisor. This lady presented with chest discomfort starting between 3 and 3:30 today with severe retrosternal discomfort radiating to both upper extremities and also with some diaphoresis. She had ST elevation involving inferior leads. Upon arrival her pain was somewhat improved. She was hemodynamically stable, did not have any syncope and near syncope type symptoms. PAST MEDICAL HISTORY: 1. Hypertension. 2. Type 2 diabetes mellitus. 3. Hyperlipidemia. 4. Smoking and COPD. 5. History of unremarkable cardiac cath in 2013. MEDICATIONS: At home include metformin, insulin, simvastatin, losartan HCTZ, Lexapro. ALLERGIES: None. REVIEW OF SYSTEMS: Unremarkable other than above-mentioned facts. EXAMINATION: Blood pressure 130/80, pulse rate is about 84 per minute regular HEENT: Unremarkable. Fundus was not examined by me. NECK: Supple. No JVD. I do not hear a carotid bruit. There is no thyromegaly. HEART exam reveals S1, S2 heard normally without a rub murmur or gallop. LUNGS are clear. ABDOMEN is soft, nontender. EXTREMITIES: Lower extremities reveal normal pulses. No edema. CENTRAL NERVOUS SYSTEM: Central nervous system was normal. EKG revealed a in a sinus rhythm with inferior ST elevation. IMPRESSION: 1. Acute inferior myocardial infarction. 2. Hypertension. 3. Hyperlipidemia. 4. Type 2 diabetes mellitus. 5. Smoking and COPD. RECOMMENDATIONS: Prompt cardiac cath and PCI was advised and I proceeded to perform the procedure expeditiously. MMODL / IJN: [id number] /
[2017-08-07] MEDS ORDERED: METOPROLOL TARTRATE 25 MG TAB PO SCH (20:00)
--- NOTE | 2017-08-07 20:28 | CC ---
CARDIAC CATHETERIZATION REPORT DATE OF SERVICE: 08/07/2017. PROCEDURE: 1. Left heart catheterization and coronary angiography. 2. Percutaneous transluminal coronary angioplasty and stenting of a totally occluded mid right coronary artery performed in the setting of an acute inferior ST- elevation myocardial infarction with re-perfusion accomplished in 76 minutes from the time patient was seen in the ER. PERFORMED BY: Dr Oswaldo Segal Moderate conscious sedation time was 48 minutes. Patient was administered Versed and Benadryl, and her oxygen saturation, hemodynamics and EKG were monitored closely. CLINICAL INFORMATION: Mrs. Clary Torres is a 62-year-old lady with type 2 diabetes, hypertension, hyperlipidemia, smoking and COPD. She underwent a cardiac cath in 2013 which revealed non-critical CAD with a right-dominant system. She was recently discharged from the hospital after a UTI, nausea and vomiting type symptoms. However, she came back today with complaints of chest pain starting around 3:30 in the afternoon or so. She was seen by the emergency room physician, Dr. Colby López, who called me about 10-15 minutes after 5 p.m. soon after his evaluation, and a STEMI alert was called. Patient at the time of my evaluation was having mild discomfort in the chest, but the severe pain had resolved. She was hemodynamically stable. She indicated to me that pain started between 3 and 3:30 this afternoon when she was not doing any particular activity. Pain was intense, midsternal, radiating to both upper extremities with diaphoresis. She did not have any syncope or near-syncope type symptoms. PROCEDURE NOTE: Under local anesthesia and strict aseptic precautions, a 6-[place]an introducer was placed in the right femoral artery. Using a right Fahad catheter, I proceeded to perform intervention, and then after that I performed coronary angiography of the left system and then also checked LV pressures but did not perform LV gram. CARDIAC CATHETERIZATION FINDINGS: The left ventricular end-diastolic pressure was about 13 mmHg without any gradient across the aortic valve. CORONARY ANGIOGRAPHY FINDINGS: RIGHT CORONARY ARTERY: This vessel is totally occluded in the mid portion after origin of an acute marginal branch without any antegrade flow. This is the culprit vessel. LEFT MAIN CORONARY ARTERY: This is a short, patent, disease-free vessel that bifurcates into LAD and circumflex. LEFT ANTERIOR DESCENDING CORONARY ARTERY: This vessel is of a fairly decent caliber and is a large-distribution vessel, gives off a diagonal branch, several septal branches. Entire mid segment has diffuse disease of about 30% to 40%, but the caliber improves towards the distal one third and it curves over the apex to supply the inferoapical portion of left ventricle. LAD therefore has a diffuse long mid lesion in the range of about 30% to 40% and the diagonal and septal branches are free of significant disease. LEFT POSTERIOR CIRCUMFLEX CORONARY ARTERY: Technically a non-dominant vessel. Gives off a good-sized obtuse marginal that is free of significant disease and continues distally as a posterolateral branch which is also free of significant disease. LEFT VENTRICULOGRAM: This was not performed. FINAL IMPRESSION: This patient has a total occlusion of mid RCA which is the culprit lesion. Left system has non-critical disease with a 40% long mid LAD lesion. The filling pressures are normal. RECOMMENDATION: I proceeded to perform intervention of the RCA expeditiously. CLOTH PIECER PROCEDURE DETAILS: I used a standard right Fahad type guide catheter and a run-through wire. With this I crossed the lesion and I dilated the total occlusion with a 2.5 caliber 12 mm Trek balloon. The patient immediately improved in terms of the ST-segment changes and chest pain. However, she became bradycardic, hypotensive, requiring transient usage of atropine and dopamine for a short while. I then deployed an 18 mm long 2.5 caliber Xience stent in the lesion. Distal to the lesion there was a small edge resection, and this was addressed with a 2.5 caliber 8 mm long Xience stent that was telescoped into this stent. Excellent angiographic result was achieved. It appears that the patient has a large PDA branch, but a small PLV branch was noted. There was no significant disease, and remarkably good angiographic appearance and flow were noted. The proximal RCA also had some lesion of about 30% to 40% but was not addressed, and the ostium was free of significant disease, although it came off at a very acute angle. Excellent angiographic result without complications was achieved. Patient received Angiomax bolus and infusion at 60 mg of Effient was given. RE-PERFUSION WAS ACHIEVED IN 76 MINUTES FROM THE TIME PATIENT WAS SEEN BY THE EMERGENCY ROOM PHYSICIAN. Results were discussed with the patient and family, and I expect her to be discharged in the next 72 hours if she remains stable. MMODL / IJN: [id number] /
--- NOTE | 2017-08-07 20:28 | LTR ---
August 07, 2017 To: Dr. Washington Re: Clary Torres (59) Dear Dr. Washington, Thank you for the opportunity to participate in the care of Mrs Clary Torres. She presented with acute inferior RI and underwent prompt stenting of RCA with excellent angiographic result. I expect she will be discharged in the next 3 days if she remains stable. She should be on dual antiplatelet therapy without interruption for one year. I have advised her regarding smoking cessation and risk factor modification. Thank you for your referral. Please call with questions. With kindest regards. Sincerely yours, B Luis E Segal MD MMODL / IJN: [id number] /
[2017-08-07] MEDS ORDERED: Magnesium Replacement Protocol 1 EACH MISC MISCELLANE PRN (20:58)
[2017-08-07] MEDS ORDERED: INSULIN GLARGINE HUM REC ANLOG 24 UNIT SQ SCH (21:00)
[2017-08-07 21:35] LABS: Glucose,Whole Blood 186 mg/dL (75-99)
[2017-08-07] MEDS: MAGNESIUM SULFATE-D5W PMX 1 GM in DEXTROSE/WATER 1 100ML.BAG IVPB SCH ×2 (21:39→23:17)
[2017-08-07] MEDS: INSULIN ASPART 100 UNIT/ML 1 ML 10 ML VIAL SQ SCH (21:39)
[2017-08-07] MEDS: INSULIN DETEMIR 100 UNIT/ML 10 ML VIAL SQ SCH (21:39)
[2017-08-08] MEDS: MAGNESIUM SULFATE-D5W PMX 1 GM in DEXTROSE/WATER 1 100ML.BAG IVPB SCH (00:19)
[2017-08-08 05:19] LABS: Basophils % (A) 0 %; Eosinophils # (A) 0.1 k/uL (0-0.7); Eosinophils % (A) 1 %; HCT 25.8 % (34.0-46.0); Lymphocytes # (A) 1.6 k/uL (1.0-4.8); Lymphocytes % (A) 23 %; MCH 30.1 pg (25.0-35.0); MCHC 33.8 g/dL (31.0-37.0); MCV 89.2 fL (80.0-100.0); Mean Platelet Volume 6.8; Monocytes # (A) 0.3 k/uL (0-1.0); Monocytes % (A) 4 %; Neutrophils # (A) 4.8 k/uL (1.3-7.7); Neutrophils % (A) 70 %; Platelet Count 298 k/uL (150-450); RBC 2.89 m/uL (3.80-5.40); RDW 14.4 % (11.5-15.5); WBC 6.9 k/uL (3.8-10.6)
[2017-08-08 05:33] LABS: HGB 8.7 gm/dL (11.4-16.0)
[2017-08-08 05:38] LABS: Anion Gap 11 mmol/L; Blood Urea Nitrogen 7 mg/dL (7-17); Calcium 8.7 mg/dL (8.4-10.2); Carbon Dioxide 24 mmol/L (22-30); Chloride 102 mmol/L (98-107); Glucose 133 mg/dL (74-99); Magnesium 2.3 mg/dL (1.6-2.3); Potassium 4.1 mmol/L (3.5-5.1); Sodium 137 mmol/L (137-145)
[2017-08-08] MEDS: INSULIN ASPART 100 UNIT/ML 1 ML 10 ML VIAL SQ SCH ×4 (07:15→22:04)
[2017-08-08 07:16] LABS: Glucose,Whole Blood 126 mg/dL (75-99)
[2017-08-08] MEDS: PANTOPRAZOLE 40 MG TABLET PO SCH (08:50)
[2017-08-08] MEDS: INSULIN DETEMIR 100 UNIT/ML 10 ML VIAL SQ SCH ×2 (08:50→22:04)
[2017-08-08] MEDS: ASPIRIN 81 MG PO SCH (08:50)
[2017-08-08] MEDS: ESCITALOPRAM 20 MG TAB PO SCH (08:50)
[2017-08-08] MEDS: METOPROLOL TARTRATE 12.5 MG TAB PO SCH (08:51)
[2017-08-08] MEDS: LOSARTAN-HCTZ 50-12.5 MG 1 EACH TAB PO SCH (08:52)
[2017-08-08] MEDS ORDERED: PRASUGREL 10 MG TAB PO SCH (09:00)
[2017-08-08] MEDS: TRIAMCINOLONE 0.1% CREAM 80 GM TUBE TOPICAL SCH (09:41)
[2017-08-08] MEDS: NICOTINE 21MG/24HR PATCH TRANSDERM SCH (10:19)
--- NOTE | 2017-08-08 11:29 | PN ---
PROGRESS NOTE Mrs. Torres came in with ST elevation MD involving the inferior wall. She underwent stenting of RCA. She is doing well. Right groin is clean and dry. Blood pressure is normal. Heart rate was slower. I am reducing the Lopressor to 12.5 mg daily with parameters. Vital signs are stable. S1, S2 heard normally. Lungs are clear. Abdomen is soft, nontender. Lower extremities reveal normal pulses. Right groin is clean and dry. Plan is to obtain echocardiogram, reduce Lopressor and move her to telemetry. MMODL / IJN: [id number] /
--- NOTE | 2017-08-08 11:47 | ECHOF ---
Referral Reason:Inf STEMI, S/P RCA PCI MEASUREMENTS -------- HEIGHT: 132.1 cm WEIGHT: 71.2 kg BP: 127/65 IVSd: 1.1 cm (0.6 - 1.1) LVIDd: 4.5 cm (3.9 - 5.3) LVPWd: 1.5 cm (0.6 - 1.1) IVSs: 1.6 cm LVIDs: 2.8 cm LVPWs: 1.9 cm LAESV Index (A-L): 40.08 ml/m Ao Diam: 3.1 cm (2.0 - 3.7) AV Cusp: 2.3 cm (1.5 - 2.6) LA Diam: 3.4 cm (2.7 - 3.8) MV EXCURSION: 13.189 mm (> 18.000) MV EF SLOPE: 90 mm/s (70 - 150) EPSS: 0.6 cm MV E Tom: 0.90 m/s MV DecT: 195 ms MV A Tom: 0.82 m/s MV E/A Ratio: 1.11 RAP: 5.00 mmHg RVSP: 25.71 mmHg FINDINGS -------- Sinus rhythm. This was a technically good study. The left ventricular size is normal. Left ventricular wall thickness is normal. Overall left vent ricular systolic function is mild-moderately impaired with, an EF between 40 - 45 %. Basal inferose ptal LV wall motion is hypokinetic. Mid inferoseptal LV wall motion is hypokinetic. Basal infer olateral hypokinesis. The right ventricle is normal in size and function. LA is moderately dilated 34-39 ml/m2 The right atrium is normal in size. Aortic valve is trileaflet and is mildly thickened. The mitral valve leaflets are mildly thickened. Mild mitral regurgitation is present. Mild tricuspid regurgitation present. The right ventricular systolic pressure, as measured by Doppl er, is 25.71mmHg. Pulmonic valve appears structurally normal. The aortic root size is normal. Normal inferior vena cava with normal inspiratory collapse consistent with estimated right atrial pre ssure of 5 mmHg. The pericardium is normal. CONCLUSIONS -------- 1. Sinus rhythm. 2. This was a technically good study. 3. The left ventricular size is normal. 4. Left ventricular wall thickness is normal. 5. Overall left ventricular systolic function is mild-moderately impaired with, an EF between 40 - 45 %. 6. Basal inferoseptal LV wall motion is hypokinetic. 7. Mid inferoseptal LV wall motion is hypokinetic. 8. Basal inferolateral hypokinesis. 9. The right ventricle is normal in size and function. 10. LA is moderately dilated 34-39 ml/m2 11. The right atrium is normal in size. 12. Aortic valve is trileaflet and is mildly thickened. 13. The mitral valve leaflets are mildly thickened. 14. Mild mitral regurgitation is present. 15. Mild tricuspid regurgitation present. 16. The right ventricular systolic pressure, as measured by Doppler, is 25.71mmHg. 17. Pulmonic valve appears structurally normal. 18. The aortic root size is normal. 19. Normal inferior vena cava with normal inspiratory collapse consistent with estimated right atrial pressure of 5 mmHg. 20. The pericardium is normal. ELECTRIC MOTOR AND GENERATOR ASSEMBLER: Rebeka Otto RDCS
[2017-08-08 12:02] LABS: Glucose,Whole Blood 148 mg/dL (75-99)
[2017-08-08] MEDS: MULTIVITAMINS, THERA 1 EACH TAB PO SCH (13:04)
[2017-08-08 13:08] LABS: Hemoglobin A1C 10.8 % (4.0-6.0)
[2017-08-08] MEDS: SODIUM CHLORIDE 0.9% 1,000 ML IV SCH (13:20)
[2017-08-08 14:01] VITALS: BMI 35.6
--- NOTE | 2017-08-08 14:23 | P.HPIM ---
History of Present Illness H&P Date: 08/08/17 Chief Complaint: Chest pain 62-year-old female who presented to the emergency room with a chief complaint of chest pain that started earlier on the day of admission. The patient reports midsternal chest pain with radiation down her left arm. She reports associated shortness of breath. Denies lightheadedness or dizziness. Denies fever or chills. Denies nausea or vomiting. The patient was recently hospitalized from 08/02/2017 until 08/06/2017 for acute renal failure and left pyelonephritis. She was prescribed Levaquin at the time of discharge. The patient has a history of diabetes mellitus, hypertension, hyperlipidemia, gastroesophageal reflux disease, osteoarthritis, and depression. She is a current everyday cigarette smoker. She usually smokes half a pack per day. She denies any alcohol use. She states she had her gallbladder out many years ago. She also reports that she has been seen a regional hr manager for a skin condition recently, but she is unable to recall the name of the condition. She states she has been receiving IM steroid injections every 2 weeks and just recently received her second injection. She was also prescribed a steroid cream. Chest x-ray: Negative for acute process. Laboratory data: WBC 9.6. Hemoglobin 10.3. Platelet count 347. Sodium 141. Potassium 4.2. BUN 7. Creatinine 0.0. Glucose 157. Magnesium 1.2. Troponin: 0.012, 17.5, 14.2 EKG was completed which revealed ST elevation in the inferior leads. The patient was taken to the Trust Manager Assistant. The patient was found to have a totally occluded RCA and a stent was placed. Review of Systems GENERAL: Patient denies fever. Denies chills. EYES: Denies blurred vision. Denies vision changes. Denies eye pain. EARS, NOSE, MOUTH, & THROAT: Denies headache. Denies sore throat. Denies ear pain. RESPIRATORY: Denies cough. Denies shortness of breath. Denies sputum production. Denies hemoptysis. CARDIOVASCULAR: Positive for midsternal chest pain with radiation to left arm prior to admission, currently denying chest pain or pressure. Denies palpitations. Denies arrhythmias. GASTROINTESTINAL: Denies abdominal pain. Denies diarrhea. Denies constipation. Denies nausea. Denies vomiting. Denies heartburn. Denies blood in the stool. GENITOURINARY: Denies urinary frequency. Denies burning. Denies dysuria. Denies cloudy urine. Denies blood in the urine. MUSCULOSKELETAL: Denies myalgias. Denies joint swelling. Denies decreased range of motion beyond patients baseline. INTEGUMENTARY: Denies pruitis. Denies rash. PSYCHIATRIC: Denies suicidal or homicial ideations. ENDOCRINE: Denies weight change. Denies polydipsia. Denies polyuria. HEMATOLOGIC: Denies bleeding disorders. Past Medical History Past Medical History: Diabetes Mellitus, GERD/Reflux, Hyperlipidemia, Hypertension, Osteoarthritis (OA), Thyroid Disorder Additional Past Medical History / Comment(s): IDDM type II, pt has for past several months problems with skin condition scattered over body-she states she is receiving steroid injections and has a cream for this and that it is not contagious but she cannot recall name of this condition, generalized arthritis, thyroid nodules-surgically removed. History of Any Multi-Drug Resistant Organisms: None Reported Past Surgical History: Section, Cholecystectomy, Heart Catheterization , Hysterectomy, Orthopedic Surgery Additional Past Surgical History / Comment(s): PARTIAL HYSTERECTOMY; THYROID SURGERY FOR NODULES; L HEEL SPUR REMOVAL; BILATERAL CARPAL TUNNEL REPAIR; PIN/ PLATE/GRAFT/SCREWS LEFT WRIST D/T FRACTURE, COLONOSCOPY-NORMAL, 2013 CARDIAC CATH NORMAL. Past Anesthesia/Blood Transfusion Reactions: No Reported Reaction Past Psychological History: Depression Additional Psychological History / Comment(s): Pt resides with her spouse. She is independent. Smoking Status: Current every day smoker Past Alcohol Use History: None Reported Additional Past Alcohol Use History / Comment(s): Pt started smoking in 1973 and smokes 1/2 pack per day Past Drug Use History: None Reported - Past Family History Father Family Medical History: Cancer, Coronary Artery Disease (CAD) Additional Family Medical History / Comment(s): Quadruple bypass, 2 or 3 stents placed (pt can't remember), prostate cancer, basal skin cancer. Father is living. Mother Family Medical History: Hyperlipidemia, Hypertension Additional Family Medical History / Comment(s): Mother is living. Medications and Allergies Home Medications Medication Instructions Recorded Confirmed Type Calcium Carbonate/Vitamin D3 1 tab PO DAILY 11/30/13 08/07/17 History [Caltrate 600 Plus D3 Tablet] Simvastatin [Zocor] 40 mg PO HS 11/30/13 08/07/17 History metFORMIN HCL [Glucophage] 500 mg PO BID 11/30/13 08/07/17 History Aspirin EC [Ecotrin Low Dose] 81 mg PO DAILY 03/29/16 08/07/17 History Escitalopram [Lexapro] 20 mg PO DAILY 03/29/16 08/07/17 History Insulin Lispro [humaLOG Kwikpen] See Protocol SQ AC-TID 03/29/16 08/07/17 History Multivit-Min/Iron/Folic/Lutein 1 tab PO DAILY 03/29/16 08/07/17 History [Centrum Silver Women Tablet] Omeprazole [PriLOSEC] 20 mg PO DAILY 03/29/16 08/07/17 History Insulin Glargine,Hum.rec.anlog 10 unit SQ HS 08/02/17 08/07/17 History [Basaglar Kwikpen U-100] Insulin Glargine,Hum.rec.anlog 24 unit SQ QAM 08/02/17 08/07/17 History [Basaglar Kwikpen U-100] Losartan/Hydrochlorothiazide 1 tab PO DAILY 08/02/17 08/07/17 History [Losartan-Hctz 100-12.5 mg Tab] Meloxicam [Mobic] 15 mg PO DAILY 08/02/17 08/07/17 History amLODIPine [Norvasc] 5 mg PO DAILY 08/02/17 08/07/17 History Fluconazole [Diflucan] 150 mg PO ONCE #1 tab 08/06/17 08/07/17 Rx Levofloxacin [Levaquin] 500 mg PO DAILY 5 Days #5 tab 08/06/17 08/07/17 Rx Allergies Allergy/AdvReac Type Severity Reaction Status Date / Time No Known Allergies Allergy Verified 08/07/17 17:08 Physical Exam Vitals: Vital Signs Temp Pulse Resp BP Pulse Ox 08/08/17 13:00 54 L 16 112/56 98 08/08/17 12:00 98.3 F 53 L 19 123/77 98 08/08/17 11:00 52 L 20 117/59 96 08/08/17 10:00 53 L 15 114/58 99 08/08/17 09:00 53 L 19 127/65 99 08/08/17 08:00 98 F 58 L 20 121/62 98 08/08/17 07:00 51 L 13 117/66 100 08/08/17 06:00 54 L 12 125/63 96 08/08/17 05:00 51 L 19 126/68 100 08/08/17 04:00 98.7 F 52 L 16 114/62 99 08/08/17 03:00 56 L 14 119/63 98 08/08/17 02:00 53 L 18 135/66 100 08/08/17 01:00 58 L 16 118/66 100 08/08/17 00:00 98.1 F 61 15 128/66 98 08/07/17 23:30 59 L 17 133/67 97 08/07/17 23:00 59 L 14 115/63 98 08/07/17 22:30 61 14 115/61 99 08/07/17 22:00 60 18 141/68 100 08/07/17 21:30 66 17 121/64 98 08/07/17 21:00 65 15 115/72 99 08/07/17 20:30 68 23 138/70 100 08/07/17 20:15 66 21 119/74 100 08/07/17 20:00 84 20 148/90 100 08/07/17 19:45 84 15 139/78 100 08/07/17 19:30 98.4 F 78 13 142/71 100 08/07/17 17:30 75 18 105/54 99 08/07/17 17:24 86 18 104/56 98 08/07/17 17:20 74 18 125/58 98 08/07/17 17:15 72 18 116/59 08/07/17 17:09 72 18 149/68 100 08/07/17 17:00 76 18 167/82 100 08/07/17 16:45 98.4 F 65 18 136/76 100 Intake and Output 08/07/17 08/08/17 08/08/17 22:59 06:59 14:59 Intake Total 459.7 725 468.75 Output Total 950 Balance 459.7 725 -481.25 Intake: IV 459.7 725 468.75 Magnesium Sulfate-D5w Pmx 100 200 1 gm In Dextrose/Water 1 100ml.bag @ 100 mls/hr IVPB Q1H [facility] Rx#: [id number] Sodium Chloride 0.9% 1, 225 525 468.75 000 ml @ 75 mls/hr IV . [id number] [facility] Rx#:[id number] Output: Urine 950 Other: Voiding Method Bedpan # Voids 1 1 0 Weight 71.214 kg 80 kg GENERAL: This is a 62-year-old female in no apparent distress at the time of examination. Pleasant and cooperative. HEENT: Head is atraumatic, normocephalic. Pupils are equal, round, and reactive to light. Sclerae anicteric. Conjunctivae are clear. Mucus membranes of the mouth are moist. Neck is supple. RESPIRATORY: Clear to ausculation. No wheezes, rales, or rhonchi. No use of accessory muscles. Patient maintaining oxygen saturation greater than 92%. No chest wall tenderness is noted on palpation or with deep breathing. CARDIOVASCULAR: Regular rate and rhythm. S1 and S2 noted. No systolic or diastolic murmur auscultated. No JVD noted. No S3 or S4 noted. GASTROINTESTINAL: No distention noted. Abdomen soft and round. Normal active bowel sounds auscultated x 4 quadrants. No pain or tenderness noted upon palpation. INTEGUMENTARY: No cyanosis. No jaundice. No rashes noted. No cellulitis noted. EXTREMITIES: 2+ peripheral pulses. No evidence of peripheral edema. No calf tenderness noted. NEUROLOGIC: Cranial nerves II-XII intact. PSYCHIATRIC: Awake, alert, and oriented X 3. Appropriate affect. Intact judgement and insight. Results CBC & Chem 7: 08/08/17 04:39 08/08/17 04:39 Labs: Abnormal Lab Results - Last 24 Hours (Table) 08/07/17 08/07/17 08/07/17 Range/Units 17:10 17:10 19:24 RBC 3.56 L (3.80-5.40) m/uL Hgb 10.3 L (11.4-16.0) gm/dL Hct 31.3 L (34.0-46.0) % Glucose 157 H (74-99) mg/dL POC Glucose (mg/dL) 167 H (75-99) mg/dL Hemoglobin A1c (4.0-6.0) % Magnesium 1.2 L (1.6-2.3) mg/dL Alkaline Phosphatase 137 H (38-126) U/L Troponin I (0.000-0.034) ng/mL 08/07/17 08/07/1718 Range/Units 21:34 22:24 22:24 RBC (3.80-5.40) m/uL Hgb (11.4-16.0) gm/dL Hct (34.0-46.0) % Glucose (74-99) mg/dL POC Glucose (mg/dL) 186 H (75-99) mg/dL Hemoglobin A1c 10.8 H (4.0-6.0) % Magnesium (1.6-2.3) mg/dL Alkaline Phosphatase (38-126) U/L Troponin I 17.500 H* (0.000-0.034) ng/mL 08/08/17 08/08/17 08/08/17 Range/Units 04:39 04:39 04:39 RBC 2.89 L (3.80-5.40) m/uL Hgb 8.7 L D (11.4-16.0) gm/dL Hct 25.8 L (34.0-46.0) % Glucose 133 H (74-99) mg/dL POC Glucose (mg/dL) (75-99) mg/dL Hemoglobin A1c (4.0-6.0) % Magnesium (1.6-2.3) mg/dL Alkaline Phosphatase (38-126) U/L Troponin I 14.200 H* (0.000-0.034) ng/mL 08/08/17 08/08/17 Range/Units 07:13 11:58 RBC (3.80-5.40) m/uL Hgb (11.4-16.0) gm/dL Hct (34.0-46.0) % Glucose (74-99) mg/dL POC Glucose (mg/dL) 126 H 148 H (75-99) mg/dL Hemoglobin A1c (4.0-6.0) % Magnesium (1.6-2.3) mg/dL Alkaline Phosphatase (38-126) U/L Troponin I (0.000-0.034) ng/mL Thrombosis Risk Factor Assmnt - Choose All That Apply Any of the Below Risk Factors Present?: Yes Each Factor Represents 1 point: Acute [facility], Medical pt on bed rest Other Risk Factors: No Thrombosis Risk Factor Assessment Total Risk Factor Score: 2 Thrombosis Risk Factor Assessment Level: Low Risk Assessment and Plan Plan: ASSESSMENT: Chest pain with radiation to left arm, present on admission, ST-elevated myocardial infarction s/p cardiac catheterization revealing totally occluded RCA with subsequent stent placement Recent hospitalization secondary to left pyelonephritis and acute renal failure Hypertension Hyperlipidemia Diabetes mellitus type 2 Diverticulosis, no evidence of diverticulitis Gastroesophageal reflux disease Osteoarthritis History of depression Nicotine dependence, patient is a current cigarette smoker History of nausea, vomiting, and diarrhea intermittently for 6 months, patient scheduled for outpatient follow-up with Dr. Rene Hypomagnesemia, improved with supplementation PLAN: Cardiology on consult. Appreciate recommendations and input Continue aspirin 81 mg daily, Lipitor 80 mg, Effient 10 mg daily, metoprolol 12.5 mg daily per cardiology Nicotine patch daily. Smoking cessation encouraged Monitor vital signs and address as appropriate. Continue telemetry NovoLog sliding scale. Levemir 10 units twice a day. Will make adjustments as necessary Resume Levaquin 4 days as patient was discharged yesterday from the hospital for pyelonephritis and was prescribed Levaquin for a 5 day course at the time of discharge Home meds as appropriate Monitor labs GI prophylaxis: Protonix 40 mg PO Daily DVT prophylaxis SCDs to bilateral lower extremities Discharge planning: Patient to return home when stable Further recommendations pending patient's course Nurse practitioner note has been reviewed by physician. Signing provider agrees with the documented findings, assessment, and plan of care.
[2017-08-08] MEDS: LEVOFLOXACIN 500 MG TAB PO SCH (15:22)
[2017-08-08 17:39] LABS: Glucose,Whole Blood 204 mg/dL (75-99)
[2017-08-08 20:26] LABS: Glucose,Whole Blood 186 mg/dL (75-99)
[2017-08-08] MEDS: ATORVASTATIN 80 MG TAB PO SCH (22:04)
[2017-08-09 05:45] LABS: Basophils % (A) 0 %; Eosinophils # (A) 0.1 k/uL (0-0.7); Eosinophils % (A) 1 %; Lymphocytes # (A) 1.6 k/uL (1.0-4.8); Lymphocytes % (A) 23 %; MCH 29.4 pg (25.0-35.0); MCHC 33.4 g/dL (31.0-37.0); MCV 88.1 fL (80.0-100.0); Monocytes # (A) 0.2 k/uL (0-1.0); Monocytes % (A) 3 %; Neutrophils # (A) 4.8 k/uL (1.3-7.7); Neutrophils % (A) 71 %; Platelet Count 339 k/uL (150-450); RBC 3.06 m/uL (3.80-5.40); RDW 14.3 % (11.5-15.5); WBC 6.8 k/uL (3.8-10.6)
[2017-08-09 05:58] LABS: ALT 34 U/L (9-52); AST 60 U/L (14-36); Albumin 2.9 g/dL (3.5-5.0); Alkaline Phosphatase 105 U/L (38-126); Anion Gap 12 mmol/L; Blood Urea Nitrogen 8 mg/dL (7-17); Calcium 9.4 mg/dL (8.4-10.2); Carbon Dioxide 27 mmol/L (22-30); Chloride 102 mmol/L (98-107); Glucose 80 mg/dL (74-99); Magnesium 1.6 mg/dL (1.6-2.3); Potassium 3.8 mmol/L (3.5-5.1); Sodium 141 mmol/L (137-145); Total Bilirubin 0.3 mg/dL (0.2-1.3)
[2017-08-09 06:07] LABS: Glucose,Whole Blood 88 mg/dL (75-99)
[2017-08-09] MEDS: INSULIN ASPART 100 UNIT/ML 1 ML 10 ML VIAL SQ SCH ×4 (06:09→22:06)
[2017-08-09] MEDS: ASPIRIN 81 MG PO SCH (08:39)
[2017-08-09] MEDS: CLOPIDOGREL 75 MG TAB PO SCH (08:40)
[2017-08-09] MEDS: ESCITALOPRAM 20 MG TAB PO SCH (08:40)
[2017-08-09] MEDS: METOPROLOL TARTRATE 12.5 MG TAB PO SCH (08:42)
[2017-08-09] MEDS: LOSARTAN-HCTZ 50-12.5 MG 1 EACH TAB PO SCH (08:42)
[2017-08-09] MEDS: NICOTINE 21MG/24HR PATCH TRANSDERM SCH (08:43)
[2017-08-09] MEDS: MULTIVITAMINS, THERA 1 EACH TAB PO SCH (08:43)
[2017-08-09] MEDS: PANTOPRAZOLE 40 MG TABLET PO SCH (08:43)
[2017-08-09] MEDS: TRIAMCINOLONE 0.1% CREAM 80 GM TUBE TOPICAL SCH (08:43)
[2017-08-09] MEDS ORDERED: Magnesium Replacement Protocol 1 EACH MISC MISCELLANE PRN (08:48)
[2017-08-09] MEDS: INSULIN DETEMIR 100 UNIT/ML 10 ML VIAL SQ SCH ×3 (08:52→22:05)
--- NOTE | 2017-08-09 08:52 | P.PN ---
Subjective Progress Note Date: 08/09/17 62-year-old female who presented to the emergency room with a chief complaint of chest pain that started earlier on the day of admission. The patient reports midsternal chest pain with radiation down her left arm. She reports associated shortness of breath. Denies lightheadedness or dizziness. Denies fever or chills. Denies nausea or vomiting. The patient was recently hospitalized from 08/02/2017 until 08/06/2017 for acute renal failure and left pyelonephritis. She was prescribed Levaquin at the time of discharge. The patient has a history of diabetes mellitus, hypertension, hyperlipidemia, gastroesophageal reflux disease, osteoarthritis, and depression. She is a current everyday cigarette smoker. She usually smokes half a pack per day. She denies any alcohol use. She states she had her gallbladder out many years ago. She also reports that she has been seen a deputy treasurer for a skin condition recently, but she is unable to recall the name of the condition. She states she has been receiving IM steroid injections every 2 weeks and just recently received her second injection. She was also prescribed a steroid cream. Chest x-ray: Negative for acute process. Laboratory data: WBC 9.6. Hemoglobin 10.3. Platelet count 347. Sodium 141. Potassium 4.2. BUN 7. Creatinine 0.0. Glucose 157. Magnesium 1.2. Troponin: 0.012, 17.5, 14.2 EKG was completed which revealed ST elevation in the inferior leads. The patient was taken to the Claim Clerk. The patient was found to have a totally occluded RCA and a stent was placed. 08/09/2017 Patient seen and examined at the bedside. Patient has been moved to the selective care unit. She denies chest pain or pressure. Denies shortness of breath or cough. She states she has been ambulating in the hallways. Hemoglobin is 9.0. Blood pressure this morning is 161/88. Heart rate in the 60s. She is afebrile. She is hoping to be discharged home tomorrow. Objective - Vital Signs Vital signs: Vital Signs Temp 97.0 F L 08/09/17 03:37 Pulse 68 08/09/17 03:37 Resp 16 08/09/17 03:37 BP 161/88 08/09/17 03:37 Pulse Ox 100 08/09/17 03:37 Intake & Output 08/08/17 08/09/17 08/09/17 18:59 06:59 18:59 Intake Total 468.75 500 240 Output Total 1450 1100 Balance -981.25 -600 240 Weight 80 kg Intake: IV 468.75 Sodium Chloride 0.9% 1, 468.75 000 ml @ 75 mls/hr IV . [id number] [facility] Rx#:[id number] Oral 500 240 Output: Urine 1450 1100 Other: Voiding Method Bedpan # Voids 1 1 - Constitutional General appearance: Present: cooperative, no acute distress - EENT Eyes: Present: EOMI, PERRLA ENT: Present: hearing grossly normal - Neck Neck: Present: normal ROM - Respiratory Respiratory: bilateral: CTA, negative: rales, rhonchi, wheezing - Cardiovascular Rhythm: regular Heart sounds: normal: S1, S2 Abnormal Heart Sounds: Absent: systolic murmur, diastolic murmur - Gastrointestinal General gastrointestinal: Present: normal bowel sounds, soft. Absent: distended , rigid, tenderness - Integumentary Integumentary Comment(s): Patient with skin condition to b/l upper arms. patient unaware of the name. Integumentary: Absent: cyanotic, flushed, jaundiced - Neurologic Neurologic: Present: CNII-XII intact - Musculoskeletal Musculoskeletal: Present: strength equal bilaterally - Psychiatric Psychiatric: Present: A&O x's 3, appropriate affect, intact judgment & insight - Labs CBC & Chem 7: 08/09/17 05:17 08/09/17 05:17 Labs: Abnormal Lab Results - Last 24 Hours (Table) 08/07/17 08/08/17 08/08/17 Range/Units 22:24 11:58 17:36 RBC (3.80-5.40) m/uL Hgb (11.4-16.0) gm/dL Hct (34.0-46.0) % POC Glucose (mg/dL) 148 H 204 H (75-99) mg/dL Hemoglobin A1c 10.8 H (4.0-6.0) % AST (14-36) U/L Total Protein (6.3-8.2) g/dL Albumin (3.5-5.0) g/dL 08/08/17 08/09/17 08/09/17 Range/Units 20:25 05:17 05:17 RBC 3.06 L (3.80-5.40) m/uL Hgb 9.0 L (11.4-16.0) gm/dL Hct 27.0 L (34.0-46.0) % POC Glucose (mg/dL) 186 H (75-99) mg/dL Hemoglobin A1c (4.0-6.0) % AST 60 H (14-36) U/L Total Protein 6.0 L (6.3-8.2) g/dL Albumin 2.9 L (3.5-5.0) g/dL Assessment and Plan Plan: ASSESSMENT: Chest pain with radiation to left arm, present on admission, ST-elevated myocardial infarction s/p cardiac catheterization revealing totally occluded RCA with subsequent stent placement Recent hospitalization secondary to left pyelonephritis and acute renal failure Hypertension Hyperlipidemia Diabetes mellitus type 2 Diverticulosis, no evidence of diverticulitis Gastroesophageal reflux disease Osteoarthritis History of depression Nicotine dependence, patient is a current cigarette smoker History of nausea, vomiting, and diarrhea intermittently for 6 months, patient scheduled for outpatient follow-up with Dr. Rene Hypomagnesemia, improved with supplementation PLAN: Cardiology on consult. Appreciate recommendations and input Continue aspirin 81 mg daily, Lipitor 80 mg, Plavix 75mg daily, metoprolol 12.5 mg daily per cardiology Nicotine patch daily. Smoking cessation encouraged Encourage ambulation. Increase activity. Monitor vital signs and address as appropriate. Continue telemetry NovoLog sliding scale. Continue levemir 10 units at HS. Increase morning levemir to 24 units. Continue Levaquin 4 doses as patient was discharged 08-06-17 from the hospital for pyelonephritis and was prescribed Levaquin for a 5 day course at the time of discharge Home meds as appropriate Monitor labs GI prophylaxis: Protonix 40 mg PO Daily DVT prophylaxis SCDs to bilateral lower extremities Discharge planning: Patient to return home when stable Further recommendations pending patient's course Nurse practitioner note has been reviewed by physician. Signing provider agrees with the documented findings, assessment, and plan of care.
--- NOTE | 2017-08-09 10:08 | P.PN ---
Subjective Progress Note Date: 08/09/17 Principal diagnosis: Inferior wall [place] This is a pleasant 62-year-old female who presented to the hospital with an acute inferior wall ST elevation myocardial infarction. She was taken to the cardiac catheterization lab, underwent angioplasty and stenting of the right coronary artery. Echocardiogram with Doppler study was performed which revealed an ejection fraction of 40-45%. Blood pressure this morning 160/80 with a heart rate 68-70, 100% on room air. Patient was seen and examined this morning, denies any chest pain, breathing overall has been stable. She is currently on aspirin 81 mg daily, Lipitor 80 mg daily, Plavix 75 mg daily, losartan hydrochlorothiazide, metoprolol 12-1/2 mg daily, and a nicotine patch. We will increase the beta kei to 25 mg daily. Increase her activity as tolerated, she has been up ambulating in the hallway most of the morning. Plan for possible discharge home in 24 hours if stable. Objective - Vital Signs Vital signs: Vital Signs Temp 97.0 F L 08/09/17 03:37 Pulse 68 08/09/17 03:37 Resp 16 08/09/17 03:37 BP 161/88 08/09/17 03:37 Pulse Ox 100 08/09/17 03:37 Intake & Output 08/08/17 08/09/17 08/09/17 18:59 06:59 18:59 Intake Total 468.75 500 240 Output Total 1450 1100 Balance -981.25 -600 240 Weight 80 kg Intake: IV 468.75 Sodium Chloride 0.9% 1, 468.75 000 ml @ 75 mls/hr IV . [id number] [facility] Rx#:[id number] Oral 500 240 Output: Urine 1450 1100 Other: Voiding Method Bedpan # Voids 1 1 - Exam PHYSICAL EXAMINATION: GENERAL: 62-year-old female in no apparent distress time of my examination. HEENT: Head is atraumatic, normocephalic. Pupils equal, round. Sclera anicteric. Conjunctiva are clear. Mucous membranes of the mouth are moist. Neck is supple. There is no elevated jugular venous pressure.] bruit is heard. HEART EXAMINATION: Heart S1, S2 normal. No murmur or gallop heard. CHEST EXAMINATION: Lungs are clear to auscultation and precussion. No chest wall tenderness is noted on palpation or with deep breathing. ABDOMEN: Soft, nontender. Bowel sounds are heard. No organomegaly noted. EXTREMITIES: 2+ peripheral pulses with no evidence of peripheral edema and no calf tenderness noted. NEUROLOGIC patient is awake, alert and oriented -3. . - Labs CBC & Chem 7: 08/09/17 05:17 08/09/17 05:17 Labs: Abnormal Lab Results - Last 24 Hours (Table) 08/07/17 08/08/17 08/08/17 Range/Units 22:24 11:58 17:36 RBC (3.80-5.40) m/uL Hgb (11.4-16.0) gm/dL Hct (34.0-46.0) % POC Glucose (mg/dL) 148 H 204 H (75-99) mg/dL Hemoglobin A1c 10.8 H (4.0-6.0) % AST (14-36) U/L Total Protein (6.3-8.2) g/dL Albumin (3.5-5.0) g/dL 08/08/17 08/09/17 08/09/17 Range/Units 20:25 05:17 05:17 RBC 3.06 L (3.80-5.40) m/uL Hgb 9.0 L (11.4-16.0) gm/dL Hct 27.0 L (34.0-46.0) % POC Glucose (mg/dL) 186 H (75-99) mg/dL Hemoglobin A1c (4.0-6.0) % AST 60 H (14-36) U/L Total Protein 6.0 L (6.3-8.2) g/dL Albumin 2.9 L (3.5-5.0) g/dL Assessment and Plan Plan: Assessment and plan #[address] elevation myocardial infarction, status post angioplasty and stenting of the right coronary artery #2 hypertension #3 diabetes #4 hyperlipidemia #5 nicotine dependence #6 COPD Plan We will increase the dose of beta kei to 25 mg daily. Continue the rest of the patient's current medications. Increase activity today and plan for possible discharge home in 24 hours if stable. DNP note has been reviewed, I agree with a documented findings and plan of care. Patient was seen and examined.
[2017-08-09] MEDS ORDERED: METOPROLOL TARTRATE 12.5 MG TAB PO ONE (10:15)
[2017-08-09] MEDS: MAGNESIUM SULFATE-D5W PMX 1 GM in DEXTROSE/WATER 1 100ML.BAG IVPB SCH ×2 (11:14→12:29)
[2017-08-09 11:17] LABS: Glucose,Whole Blood 145 mg/dL (75-99)
[2017-08-09] MEDS: LEVOFLOXACIN 500 MG TAB PO SCH (14:04)
[2017-08-09 16:40] LABS: Glucose,Whole Blood 131 mg/dL (75-99)
[2017-08-09] MEDS: ATORVASTATIN 80 MG TAB PO SCH (20:41)
[2017-08-09 21:01] LABS: Glucose,Whole Blood 166 mg/dL (75-99)
[2017-08-10] MEDS: INSULIN ASPART 100 UNIT/ML 1 ML 10 ML VIAL SQ SCH ×4 (06:01→21:23)
[2017-08-10 06:02] LABS: Glucose,Whole Blood 116 mg/dL (75-99)
[2017-08-10] MEDS: PANTOPRAZOLE 40 MG TABLET PO SCH (06:09)
[2017-08-10 06:34] LABS: Basophils % (A) 0 %; Eosinophils # (A) 0.1 k/uL (0-0.7); Eosinophils % (A) 1 %; HCT 26.7 % (34.0-46.0); HGB 9.1 gm/dL (11.4-16.0); Lymphocytes # (A) 1.2 k/uL (1.0-4.8); Lymphocytes % (A) 22 %; MCH 29.9 pg (25.0-35.0); MCHC 34.1 g/dL (31.0-37.0); MCV 87.8 fL (80.0-100.0); Mean Platelet Volume 6.8; Monocytes # (A) 0.3 k/uL (0-1.0); Monocytes % (A) 6 %; Neutrophils # (A) 3.7 k/uL (1.3-7.7); Neutrophils % (A) 69 %; Platelet Count 295 k/uL (150-450); RBC 3.05 m/uL (3.80-5.40); RDW 14.2 % (11.5-15.5); WBC 5.4 k/uL (3.8-10.6)
[2017-08-10 06:43] LABS: ALT 36 U/L (9-52); AST 55 U/L (14-36); Albumin 3.1 g/dL (3.5-5.0); Alkaline Phosphatase 104 U/L (38-126); Anion Gap 12 mmol/L; Blood Urea Nitrogen 7 mg/dL (7-17); Calcium 9.3 mg/dL (8.4-10.2); Carbon Dioxide 29 mmol/L (22-30); Chloride 101 mmol/L (98-107); Glucose 107 mg/dL (74-99); Magnesium 1.5 mg/dL (1.6-2.3); Potassium 3.8 mmol/L (3.5-5.1); Sodium 142 mmol/L (137-145); Total Bilirubin 0.3 mg/dL (0.2-1.3); Total Protein 6.2 g/dL (6.3-8.2)
[2017-08-10] MEDS ORDERED: Magnesium Replacement Protocol 1 EACH MISC MISCELLANE PRN (07:03)
[2017-08-10] MEDS: MAGNESIUM SULFATE-D5W PMX 1 GM in DEXTROSE/WATER 1 100ML.BAG IVPB SCH ×2 (07:42→09:41)
[2017-08-10] MEDS: ASPIRIN 81 MG PO SCH (07:43)
[2017-08-10] MEDS: MULTIVITAMINS, THERA 1 EACH TAB PO SCH (07:43)
[2017-08-10] MEDS: ESCITALOPRAM 20 MG TAB PO SCH (07:43)
[2017-08-10] MEDS: NICOTINE 21MG/24HR PATCH TRANSDERM SCH (07:43)
[2017-08-10] MEDS: CLOPIDOGREL 75 MG TAB PO SCH (07:43)
[2017-08-10] MEDS: LOSARTAN-HCTZ 50-12.5 MG 1 EACH TAB PO SCH (07:43)
[2017-08-10] MEDS: METOPROLOL TARTRATE 25 MG TAB PO SCH (07:43)
[2017-08-10] MEDS: INSULIN DETEMIR 100 UNIT/ML 10 ML VIAL SQ SCH ×2 (07:44→21:23)
[2017-08-10] MEDS: TRIAMCINOLONE 0.1% CREAM 80 GM TUBE TOPICAL SCH (07:45)
[2017-08-10] MEDS ORDERED: MAGNESIUM SULFATE-D5W PMX 1 GM in DEXTROSE/WATER 1 100ML.BAG IVPB SCH (08:00)
[2017-08-10] MEDS ORDERED: POTASSIUM CHLORIDE ER 20 MEQ TAB.ER PO STA (08:18)
--- NOTE | 2017-08-10 10:04 | PN ---
PROGRESS NOTE This is post 3 days of cardiac catheterization, stent placement, and inferior wall myocardial infarction. Again, 62-year-old white female came to emergency room with chief complaint of chest pain after being discharged. She had some dizziness, but no vomiting. She had just been discharged on August 06, the day before with acute renal failure and pyelonephritis and had been placed on Levaquin. The patient has longstanding history of diabetes, hypertension, hyperlipidemia, GE reflux, osteoarthritis, depression, and she is an everyday cigarette smoker unfortunately at that time. She denies alcohol. She has had her gallbladder removed. She also has seen a manager solution. For skin condition, had been on arm cream. She went to the refuse laborer and had an occluded right coronary artery and had 2 stents placed. She tolerated the procedure well, came back. She also had inferior wall myocardial infarction, ST- elevation inferior leads at this period of time. REVIEW OF SYSTEMS: Eyes: The patient can see well. ENT, no problem with her mouth or her throat. Hearing well. NECK: Supple. No pain. Respiratory no cough. No shortness of breath. Heart no palpitations. No orthopnea or proximal nocturnal dyspnea. GI no hematemesis, melena or hematochezia. was negative. Neuromuscular: Good strength in lower legs and the arms with no swelling. Integumentary: She has a rash on her arms, still undetermined etiology and being seen by a local manager solution. Psychiatric: Anxious and nervous. PHYSICAL EXAMINATION: VITAL SIGNS: Blood pressure 126/80, heart rate is in the 70s, respiratory rate is 18, temperature is 98.6, O2 is 94% on room air. EYES: Pupils are equal, round, react to light and accommodation. ENT showed tympanic membranes and pharynx to be negative. NECK: Supple. Midline trachea. CHEST essentially clear to auscultation. HEART sinus rhythm. No murmur. ABDOMEN: Soft, nontender with no organomegaly. EXTREMITIES have decreased swelling, good palpable lower extremities pulses. Her arms have a rash and excoriation mostly on the right with some on the left with hypopigmentation. LABORATORY DATA: No new labs. ASSESSMENT: 1. Acute myocardial infarction, ST-elevation inferior wall cardiac catheterization, totally occluded RCA with still stent placement x2. 2. Recent hospitalization for acute left pyelonephritis, acute renal failure. 3. Hypertension. 4. Hyperlipidemia. 5. Type 2 diabetes. 6. Diverticulosis with no diverticulitis. 7. Nicotine dependence. 8. Depression. 9. Osteoarthritis. 10.Gastroesophageal reflux disease. 11.Nonspecific nausea, vomiting, diarrhea. She is following up with Dr. Rene. 12.Hypomagnesemia with supplementation. PLAN: We will continue same medications. Right now she is on Plavix and Lipitor and aspirin. Her metoprolol has been increased to 25. Nicotine patch will have to be on and smoking cessation again encouraged and talked with great lengths. Encourage ambulation. NovoLog to scale. We will have 4 more days of Levaquin 500 mg once a day. Home medications have been evaluated. GI prophylaxis with Protonix and DVT prophylaxis. Prognosis is good. MMODL / IJN: [id number] /
--- NOTE | 2017-08-10 10:04 | P.PN ---
Subjective Progress Note Date: 08/10/17 Principal diagnosis: Inferior wall MO This is a pleasant 62-year-old female who presented to the hospital with an acute inferior wall ST elevation myocardial infarction. She was taken to the cardiac catheterization lab, underwent angioplasty and stenting of the right coronary artery. Echocardiogram with Doppler study was performed which revealed an ejection fraction of 40-45%. Blood pressure this morning 160/80 with a heart rate 68-70, 100% on room air. Patient was seen and examined this morning, denies any chest pain, breathing overall has been stable. She is currently on aspirin 81 mg daily, Lipitor 80 mg daily, Plavix 75 mg daily, losartan hydrochlorothiazide, metoprolol 12-1/2 mg daily, and a nicotine patch. We will increase the beta kei to 25 mg daily. Increase her activity as tolerated, she has been up ambulating in the hallway most of the morning. Plan for possible discharge home in 24 hours if stable. 08/10/2017 Patient was seen and examined this morning, she's been up ambulating in the hallway without any difficulty. Hemodynamically stable. Denies any chest pain or difficulty in breathing. Blood pressure 126/60 with a heart rate in the 70s , blood pressure prior to that 140/60. Objective - Vital Signs Vital signs: Vital Signs Temp 98.8 F 08/10/17 08:00 Pulse 73 08/10/17 08:00 Resp 16 08/10/17 08:00 BP 126/67 08/10/17 08:00 Pulse Ox 96 08/10/17 08:00 Intake & Output 08/09/17 08/10/17 08/10/17 18:59 06:59 18:59 Intake Total 1096 300 246 Output Total 200 Balance 896 300 246 Weight 72.6 kg 71.6 kg Intake: IV 40 10 Invasive Line 1 30 10 Invasive Line 2 10 Intake, IV Titration 220 Amount Magnesium Sulfate-D5w Pmx 200 1 gm In Dextrose/Water 1 100ml.bag @ 100 mls/hr IVPB Q1H [facility] Rx#: [id number] Sodium Chloride 0.9% 1, 20 000 ml As IV .[facility] Rx#:[id number] Oral 836 300 236 Output: Urine 200 Other: Voiding Method Bedpan Toilet Toilet # Voids 2 - Exam PHYSICAL EXAMINATION: GENERAL: 62-year-old female in no apparent distress time of my examination. HEENT: Head is atraumatic, normocephalic. Pupils equal, round. Sclera anicteric. Conjunctiva are clear. Mucous membranes of the mouth are moist. Neck is supple. There is no elevated jugular venous pressure.] bruit is heard. HEART EXAMINATION: Heart S1, S2 normal. No murmur or gallop heard. CHEST EXAMINATION: Lungs are clear to auscultation and precussion. No chest wall tenderness is noted on palpation or with deep breathing. ABDOMEN: Soft, nontender. Bowel sounds are heard. No organomegaly noted. EXTREMITIES: 2+ peripheral pulses with no evidence of peripheral edema and no calf tenderness noted. NEUROLOGIC patient is awake, alert and oriented -3. . - Labs CBC & Chem 7: 08/10/17 05:55 08/10/17 05:55 Labs: Abnormal Lab Results - Last 24 Hours (Table) 08/09/17 08/09/17 08/09/17 Range/Units 11:14 16:36 21:00 RBC (3.80-5.40) m/uL Hgb (11.4-16.0) gm/dL Hct (34.0-46.0) % Glucose (74-99) mg/dL POC Glucose (mg/dL) 145 H 131 H 166 H (75-99) mg/dL Magnesium (1.6-2.3) mg/dL AST (14-36) U/L Total Protein (6.3-8.2) g/dL Albumin (3.5-5.0) g/dL 08/10/17 08/10/17 08/10/17 Range/Units 05:55 05:55 06:00 RBC 3.05 L (3.80-5.40) m/uL Hgb 9.1 L (11.4-16.0) gm/dL Hct 26.7 L (34.0-46.0) % Glucose 107 H (74-99) mg/dL POC Glucose (mg/dL) 116 H (75-99) mg/dL Magnesium 1.5 L (1.6-2.3) mg/dL AST 55 H (14-36) U/L Total Protein 6.2 L (6.3-8.2) g/dL Albumin 3.1 L (3.5-5.0) g/dL Assessment and Plan Plan: Assessment and plan #[address] elevation myocardial infarction, status post angioplasty and stenting of the right coronary artery #2 hypertension #3 diabetes #4 hyperlipidemia #5 nicotine dependence #6 COPD Plan From cardiology's perspective, patient may be able to be discharged home today. We will make her a follow-up appointment in the office post discharge. She will be discharged home on aspirin 81 mg daily, Lipitor 80 mg daily, Plavix 75 mg daily, losartan hydrochlorothiazide, mag was 1.5 which we'll replace. Metoprolol 25 mg daily, nicotine patch, as an as needed for chest pain. DNP note has been reviewed, I agree with a documented findings and plan of care. Patient was seen and examined.
[2017-08-10 11:58] LABS: Glucose,Whole Blood 197 mg/dL (75-99)
[2017-08-10] MEDS: LEVOFLOXACIN 500 MG TAB PO SCH (16:57)
[2017-08-10 17:10] LABS: Glucose,Whole Blood 148 mg/dL (75-99)
[2017-08-10] MEDS: ATORVASTATIN 80 MG TAB PO SCH (19:41)
[2017-08-10 20:58] LABS: Glucose,Whole Blood 155 mg/dL (75-99)
[2017-08-11 04:38] VITALS: RESP 18
[2017-08-11] MEDS: PANTOPRAZOLE 40 MG TABLET PO SCH (06:28)
[2017-08-11] MEDS: INSULIN ASPART 100 UNIT/ML 1 ML 10 ML VIAL SQ SCH (06:32)
[2017-08-11 06:47] LABS: Glucose,Whole Blood 151 mg/dL (75-99)
[2017-08-11 08:00] LABS: Calcium 9.3 mg/dL (8.4-10.2); Potassium 4.2 mmol/L (3.5-5.1)
[2017-08-11 08:18] VITALS: BP 103/59; PULSE 77; TEMP 99.1
[2017-08-11] MEDS: TRIAMCINOLONE 0.1% CREAM 80 GM TUBE TOPICAL SCH (08:25)
[2017-08-11] MEDS: NICOTINE 21MG/24HR PATCH TRANSDERM SCH (08:26)
[2017-08-11] MEDS: ESCITALOPRAM 20 MG TAB PO SCH (08:26)
[2017-08-11] MEDS: CLOPIDOGREL 75 MG TAB PO SCH (08:26)
[2017-08-11] MEDS: METOPROLOL TARTRATE 25 MG TAB PO SCH (08:26)
[2017-08-11] MEDS: LOSARTAN-HCTZ 50-12.5 MG 1 EACH TAB PO SCH (08:26)
[2017-08-11] MEDS: ASPIRIN 81 MG PO SCH (08:26)
[2017-08-11] MEDS ORDERED: MAGNESIUM OXIDE 400 MG TAB PO SCH (09:00)
[2017-08-11] MEDS: INSULIN DETEMIR 100 UNIT/ML 10 ML VIAL SQ SCH (09:35)
--- NOTE | 2017-08-11 10:32 | DS ---
DISCHARGE SUMMARY DATE ADMITTED: August 07, 2017. DATE DISCHARGED: August 11, 2017. DISCHARGE DIAGNOSES: 1. Acute inferior wall myocardial infarction-STEMI. 2. Occluded right coronary artery with stent placement x2. 3. Recent continuous treatment of her acute left pyelonephritis. Resolving renal failure. 4. Hypertension. 5. Hyperlipidemia. 6. Type 2 diabetes with insulin support. 7. Diverticulosis but no diverticulitis. 8. Nicotine dependence. 9. Depression. 10.Osteoarthritis. 11.Gastroesophageal reflux disease. 12.Nonspecific nausea, vomiting, diarrhea. 13.Hypomagnesemia. HISTORY: This is a 62-year-old white female who came in with acute chest pain status post being at her sister's house at which time she was transferred via ambulance to the emergency room. She was found at that time to have in a STEMI inferior wall myocardial infarction. Cardiology was called. Dr. Dani Segal took her to the tailings dam laborer and cardiac catheterization was completed. Two stents were put in to a right coronary artery area. The patient was continued to be watched carefully in ICU for several days. She continued to improve with no complications including no arrhythmias. Repeat echocardiogram was completed which showed about a 35% ejection fraction, which was down from 50% from several years ago. Her lab was continued to be watched only thing of importance at this point is she still remains with a lower magnesium and magnesium replacement will be given orally. At this time her review of systems are all within normal limits. Her vital signs show a blood pressure of 103/59, heart rate is in the 70s, temperature is 99.1, respiratory rate is 18. She has O2 saturation of 95 on room air. EYES: Pupils are equal, round, react to light accommodation. ENT showed tympanic membranes and pharynx to be negative. Neck is supple with a midline trachea. No carotid bruits. Chest essentially clear to auscultation. Heart remains sinus rhythm with no murmur. Abdomen is soft, nontender with no organomegaly. Lower extremities have good palpable pulses. Her skin is normal too. Psychiatric: No anxiety and no depression. MEDICATIONS ON DISCHARGE: Will include Lipitor 80 mg a day, Plavix 75 daily. She will take some Mag oxide 200 mg a day along with Lopressor 25 daily. She will stay with her losartan 100-25, hydrochlorothiazide 1 daily, metformin 500 mg twice a day. She will cancel the Zocor. Calcium carbonate p.r.n., Lexapro 20 mg a day. Lisinopril per scale AC, 81 mg on aspirin, 20 mg of omeprazole, Centrum vitamin, 5 Norvasc, 15 Mobic daily. She will resume 24 units of in the morning and 10 units at night. She will finish with 5 days of Levaquin. She will follow up. She will be on a low-salt diet. She will follow up with Dr. Segal in a week. She will see me in 3 days. Her activity is to slowly return back to normal. MMODL / IJN: [id number] /
== END 2017-08-11 10:04 | disposition home or self-care (01) | DRG 247 ==
LOC: EC 16:38 → 6ICU 17:25 → 6SEL 08-09 03:05
PROVIDERS: ADMIT Family Medicine; ATTEND Family Medicine
PROC: B2111ZZ Fluoroscopy of Multiple Coronary Arteries using Low Osmolar Contrast (ICD-10-PCS; principal; 2017-08-07 17:34)
PROC: 027035Z Dilation of Coronary Artery, One Artery with Two Drug-eluting Intraluminal Devices, Percutaneous Approach (ICD-10-PCS; principal; 2017-08-07 17:34)
PROC: 4A023N7 Measurement of Cardiac Sampling and Pressure, Left Heart, Percutaneous Approach (ICD-10-PCS; principal; 2017-08-07 17:34)
PROC: B2151ZZ Fluoroscopy of Left Heart using Low Osmolar Contrast (ICD-10-PCS; principal; 2017-08-07 17:34)
DX: I21.19 ST elevation (STEMI) myocardial infarction involving other coronary artery of inferior wall (principal); E11.9 Type 2 diabetes mellitus without complications; E78.5 Hyperlipidemia, unspecified; E83.42 Hypomagnesemia; F17.210 Nicotine dependence, cigarettes, uncomplicated; F32.9 Major depressive disorder, single episode, unspecified; I10 Essential (primary) hypertension; I25.10 Atherosclerotic heart disease of native coronary artery without angina pectoris; J44.9 Chronic obstructive pulmonary disease, unspecified; K21.9 Gastro-esophageal reflux disease without esophagitis; K57.90 Diverticulosis of intestine, part unspecified, without perforation or abscess without bleeding; M19.90 Unspecified osteoarthritis, unspecified site; Z79.02 Long term (current) use of antithrombotics/antiplatelets; Z79.1 Long term (current) use of non-steroidal anti-inflammatories (NSAID); Z79.4 Long term (current) use of insulin; Z79.82 Long term (current) use of aspirin; Z79.899 Other long term (current) drug therapy; Z82.49 Family history of ischemic heart disease and other diseases of the circulatory system; Z90.710 Acquired absence of both cervix and uterus; Z90.49 Acquired absence of other specified parts of digestive tract
CPT/HCPCS: 36415; 71045; 80048; 80053; 82550; 82553; 83036; 83735; 84484; 85025; 85610; 85730; 93005; 93306; 93458; 96374; 96375; 99291

== ENCOUNTER → 2017-08-26 | Outpatient (CLI) | payer OTHER ==
[2017-08-26 09:57] LABS: MCH 30.6 pg (25.0-35.0); MCHC 33.3 g/dL (31.0-37.0); MCV 92.1 fL (80.0-100.0); Mean Platelet Volume 7.4; Platelet Count 202 k/uL (150-450); RBC 3.59 m/uL (3.80-5.40); WBC 7.1 k/uL (3.8-10.6)
[2017-08-26 10:21] LABS: Calcium 8.9 mg/dL (8.4-10.2); Potassium 4.9 mmol/L (3.5-5.1)
== END | disposition home or self-care (01) ==
LOC: LABWHC1 08:44
PROVIDERS: ATTEND Internal Medicine Interventional Cardiology
DX: I10 Essential (primary) hypertension (principal)
CPT/HCPCS: 36415; 80048; 85027

== ENCOUNTER 2022-07-20 23:28 | Emergency (ER) | payer OTHER ==
[2022-07-20 23:37] VITALS: TEMP 97.5
[2022-07-20] MEDS ORDERED: KETOROLAC 15 MG/ML 1 ML VIAL IVP STA (23:50)
[2022-07-20] MEDS ORDERED: SODIUM CHLORIDE 0.9% 1,000 ML IV ONE (23:50)
[2022-07-21 00:39] LABS: Basophils % (A) 0 %; Eosinophils # (A) 0.2 k/uL (0-0.7); Eosinophils % (A) 3 %; HCT 34.9 % (34.0-46.0); HGB 11.9 gm/dL (11.4-16.0); Lymphocytes # (A) 1.2 k/uL (1.0-4.8); Lymphocytes % (A) 17 %; MCH 33.3 pg (25.0-35.0); Mean Platelet Volume 7.9; Monocytes # (A) 0.3 k/uL (0-1.0); Monocytes % (A) 4 %; Neutrophils # (A) 5.7 k/uL (1.3-7.7); Neutrophils % (A) 75 %; Platelet Count 275 k/uL (150-450); RBC 3.56 m/uL (3.80-5.40); RDW 15.1 % (11.5-15.5); WBC 7.5 k/uL (3.8-10.6)
[2022-07-21] MEDS ORDERED: ONDANSETRON 4 MG/2 ML VIAL IVP STA (00:39)
[2022-07-21] MEDS ORDERED: MORPHINE SULFATE 2 MG/ML SYRINGE IVP ONE (01:20)
[2022-07-21 01:34] LABS: Albumin 2.6 g/dL (3.5-5.0); Calcium 7.6 mg/dL (8.4-10.2); Potassium 4.2 mmol/L (3.5-5.1); Total Bilirubin 0.3 mg/dL (0.2-1.3); Total Protein 6.9 g/dL (6.3-8.2)
--- NOTE | 2022-07-21 02:08 | CT ---
EXAM: CT Abdomen and Pelvis Without Intravenous Contrast CLINICAL HISTORY: ITS.REASON CT Reason: R flank pain TECHNIQUE: Axial computed tomography images of the abdomen and pelvis without intravenous contrast. CTDI is 8.8 mGy and DLP is 460.4 mGy-cm. This CT exam was performed using one or more of the following dose reduction techniques: automated exposure control, adjustment of the mA and/or kV according to patient size, and/or use of iterative reconstruction technique. COMPARISON: CT Abdomen Pelvis dated 08/02/2017 FINDINGS: Lung bases: Unremarkable. No mass. No consolidation. Heart: Coronary calcifications. ABDOMEN: Liver: Unremarkable. Gallbladder and bile ducts: Absent gallbladder. No ductal dilation. Pancreas: Unremarkable. No ductal dilation. Spleen: Unremarkable. No splenomegaly. Adrenals: Unremarkable. No mass. Kidneys and ureters: Nonobstructing right renal calculi. No hydronephrosis. Nonspecific mild perinephric stranding. Stomach and bowel: Colonic diverticulosis. No obstruction. No mucosal thickening. PELVIS: Appendix: Normal appendix. Bladder: Air-fluid level within the urinary bladder. No stones. Reproductive: Absent uterus. ABDOMEN and PELVIS: Intraperitoneal space: Unremarkable. No free air. No significant fluid collection. Bones/joints: Multiple thoracolumbar compression deformities, new since the prior study. Compression fractures of the T8-T12 levels and L1, L3, L4 and L5 levels. Mild to moderate height loss at most of these levels, mostly centrally. Marked height loss at T8 where there is vertebroplasty. These findings are new since prior. No dislocation. Soft tissues: Unremarkable. Vasculature: Marked atherosclerotic calcifications of the aorta, iliac and femoral arteries. Calcifications of the proximal renal arteries. No abdominal aortic aneurysm. Lymph nodes: Unremarkable. No enlarged lymph nodes. IMPRESSION: 1. Air-fluid level within the urinary bladder. Correlate for recent instrumentation or infection. 2. Nonobstructing right renal calculi. No hydronephrosis. 3. Multiple thoracolumbar compression deformities as described above, new since the prior study. 4. Colonic diverticulosis. 5. Other nonacute incidental findings.
--- NOTE | 2022-07-21 02:57 | ED ---
General Adult HPI - General Chief complaint: Abdominal Pain Stated complaint: Right side back pain Time Seen by Provider: 07/20/22 23:43 Source: patient, RN notes reviewed Mode of arrival: wheelchair Limitations: no limitations - History of Present Illness Initial comments: 67-year-old female with a past medical history significant for nephrolithiasis and kidney stent presents to the emergency department with right flank pain. Patient reports worsening right flank pain that started yesterday. She has since reported that his gotten worse. She scraped as a sharp pain she has not taken anything for his symptoms. She denies any fever, chills, chest pain, shortness of breath, abdominal pain, nausea, vomiting, dysuria, hematuria. She reports her last bowel movement was last Saturday. - Related Data Home Medications Medication Instructions Recorded Confirmed Calcium Carbonate/Vitamin D3 1 tab PO DAILY 11/30/13 08/07/17 [Caltrate 600 Plus D3 Tablet] Simvastatin [Zocor] 40 mg PO HS 11/30/13 08/07/17 metFORMIN HCL [Glucophage] 500 mg PO BID 11/30/13 08/07/17 Aspirin EC [Ecotrin Low Dose] 81 mg PO DAILY 03/29/16 08/07/17 Escitalopram [Lexapro] 20 mg PO DAILY 03/29/16 08/07/17 Insulin Lispro [humaLOG Kwikpen] See Protocol SQ AC-TID 03/29/16 08/07/17 Multivit-Min/Iron/Folic/Lutein 1 tab PO DAILY 03/29/16 08/07/17 [Centrum Silver Women Tablet] Omeprazole [PriLOSEC] 20 mg PO DAILY 03/29/16 08/07/17 Insulin Glargine,Hum.rec.anlog 10 unit SQ HS 08/02/17 08/07/17 [Basaglar Kwikpen U-100] Insulin Glargine,Hum.rec.anlog 24 unit SQ QA 08/02/17 08/07/17 [Basaglar Kwikpen U-100] Losartan/Hydrochlorothiazide 1 tab PO DAILY 08/02/17 08/07/17 [Losartan-Hctz 100-12.5 mg Tab] Meloxicam [Mobic] 15 mg PO DAILY 08/02/17 08/07/17 amLODIPine [Norvasc] 5 mg PO DAILY 08/02/17 08/07/17 Previous Rx's Medication Instructions Recorded Fluconazole [Diflucan] 150 mg PO ONCE #1 tab 08/06/17 Levofloxacin [Levaquin] 500 mg PO DAILY 5 Days #5 tab 08/06/17 Atorvastatin [Lipitor] 80 mg PO HS #30 tab 08/11/17 Clopidogrel [Plavix] 75 mg PO DAILY #30 tab 08/11/17 Magnesium Oxide [Mag-Ox] 200 mg PO DAILY #30 tab 08/11/17 Metoprolol Tartrate [Lopressor] 25 mg PO DAILY #60 tab 08/11/17 Cephalexin [Keflex] 500 mg PO Q6HR #40 cap 07/21/22 HYDROcodone/APAP 5-325MG [[place] 5] 1 each PO Q6HR PRN #6 tab 07/21/22 Allergies Allergy/AdvReac Type Severity Reaction Status Date / Time No Known Allergies Allergy Verified 07/20/22 23:30 Review of Systems ROS Statement: Those systems with pertinent positive or pertinent negative responses have been documented in the HPI. ROS Other: All systems not noted in ROS Statement are negative. Past Medical History Past Medical History: Diabetes Mellitus, GERD/Reflux, Hyperlipidemia, Hypertension, Osteoarthritis (OA), Thyroid Disorder Additional Past Medical History / Comment(s): IDDM type II, pt has for past several months problems with skin condition scattered over body-she states she is receiving steroid injections and has a cream for this and that it is not contagious but she cannot recall name of this condition, generalized arthritis, thyroid nodules-surgically removed. History of Any Multi-Drug Resistant Organisms: None Reported Past Surgical History: Section, Cholecystectomy, Heart Catheterization, Hysterectomy, Orthopedic Surgery Additional Past Surgical History / Comment(s): PARTIAL HYSTERECTOMY; THYROID SURGERY FOR NODULES; L HEEL SPUR REMOVAL; BILATERAL CARPAL TUNNEL REPAIR; PIN/PLATE/GRAFT/SCREWS LEFT WRIST D/T FRACTURE, COLONOSCOPY-NORMAL, 2013 CARDIAC CATH NORMAL. Past Anesthesia/Blood Transfusion Reactions: No Reported Reaction Past Psychological History: Depression Smoking Status: Current every day smoker Past Alcohol Use History: None Reported Past Drug Use History: None Reported - Past Family History Father Family Medical History: Cancer, Coronary Artery Disease (CAD) Additional Family Medical History / Comment(s): Quadruple bypass, 2 or 3 stents placed (pt can't remember), prostate cancer, basal skin cancer. Father is living. Mother Family Medical History: Hyperlipidemia, Hypertension Additional Family Medical History / Comment(s): Mother is living. General Exam - General Exam Comments Initial Comments: General: Alert, in no acute distress Head: atraumatic normocephalic. Eyes PERRL, EOMI intact, mucous membranes moist Respiratory: Lungs clear to auscultation bilaterally Cardiovascular: Heart rate regular rate and rhythm Abdominal: Soft without guarding or rebound Extremities: Normal inspection with full range of motion and normal capillary refill Neuroogic: alert and oriented 3, CN II-XII intact, able to ambulate with steady gait Skin: warm dry and intact with normal color Limitations: no limitations Course Vital Signs 07/20/22 07/21/22 23:32 01:39 Temperature 97.5 F L Pulse Rate 80 83 Respiratory 16 18 Rate Blood Pressure 145/84 140/82 O2 Sat by Pulse 98 99 Oximetry Medical Decision Making - Medical Decision Making Was pt. sent in by a medical professional or institution (, PA, [employer] TANKER DRIVER, urgent care, hospital, or half-way...) When possible be specific @ -No Did you speak to anyone other than the patient for history (EMS, parent, family, police, friend...)? What history was obtained from this source @ -No Did you review nursing and triage notes (agree or disagree)? Why? @ -I reviewed and agree with nursing and triage notes Were old charts reviewed (outside hosp., previous admission, EMS record, old EKG, old radiological studies, urgent care reports/EKG's, half-way records)? Report findings @ -No old charts were reviewed Differential Diagnosis (chest pain, altered mental status, abdominal pain women, abdominal pain men, vaginal bleeding, weakness, fever, dyspnea, syncope, headac he, dizziness, GI bleed, back pain, seizure, CVA, palpatations, mental health, musculoskeletal)? @ -not applicable EKG interpreted by me (3pts min.). @ -As above X-rays interpreted by me (1pt min.). @ -None done CT interpreted by me (1pt min.). @ -None done U/S interpreted by me (1pt. min.). @ -None done What testing was considered but not performed or refused? (CT, X-rays, U/S, labs)? Why? @ -None What meds were considered but not given or refused? Why? @ -None Did you discuss the management of the patient with other professionals (professionals i.e. , PA, [employer] T[employer]ER DRIVER, lab, RT, psych nurse, social contact worker, hl7 developer, teacher, staff submarine warfare officer, onsite case manager)? Give summary @ -No Was smoking cessation discussed for >3mins.? @ -No Was critical care preformed (if so, how long)? @ -No Were there social determinants of health that impacted care today? How? (Homelessness, low income, unemployed, alcoholism, drug addiction, t ransportation, low edu. Level, literacy, decrease access to med. care, correction, rehab)? @ -No Was there de-escalation of care discussed even if they declined (Discuss DNR or withdrawal of care, Hospice)? DNR status @ -No What co-morbidities impacted this encounter? (DM, HTN, Smoking, COPD, CAD, Cancer, CVA, ARF, Chemo, Hep., AIDS, mental health diagnosis, sleep apnea, morbid obesity)? @ -None Was patient admitted / discharged? Hospital course, mention meds given and route, prescriptions, significant lab abnormalities, going to OR and other pertinent info. @ -Discharged. This is a 67-year-old female who presents the emergency department with flank pain. Patient had a thorough history and physical exam performed while in the ED. Physical exam is essentially unremarkable heart rate regular rate and rhythm, lungs clear to auscultation bilaterally abdomen is soft and nontender. Patient had lab work and imaging performed which revealed: WBC 7.9, hemoglobin 11.9 and a 129 BUNs 19, creatinine 1.63, urinalysis reveals cloudy urine with 1+ proteins, trace amount of blood, large amount of leukocyte Estrace, greater than 182 wbc's and many WBCs CT reveals an air-fluid level within the urinary bladder with non-obstruction right renal calculi no hydronephrosis. Multiple cerebral old lumbar compression deformities colonic diverticulosis . I discussed the results in detail with the patient who verbalized understanding and all questions were addressed. She was given Toradol and 1L IV fluids with symptomatic relief on the ED. Return precautions were discussed at length. Strongly recommended to follow up with primary care physician in 1-2 days. She was given a prescription for Keflex. Patient discharged in stable condition. Case discussed with DARIA Garcia who agrees with plan of care Undiagnosed new problem with uncertain prognosis? @ -No Drug Therapy requiring intensive monitoring for toxicity (Heparin, Nitro, Insulin, Cardizem)? @ -No Were any procedures done? @ -No Diagnosis/symptom? @ -Right Flank Pain - Urinary Retention Acute, or Chronic, or Acute on Chronic? @ -Acute Uncomplicated (without systemic symptoms) or Complicated (systemic symptoms)? @ -Uncomplicated Side effects of treatment? @ -No Exacerbation, Progression, or Severe Exacerbation? @ -No Poses a threat to life or bodily function? How? (Chest pain, [place], [place], pneumonia, PE, COPD, DKA, ARF, appy, cholecystitis, CVA, Diverticulitis, Homicidal, Suicidal, threat to staff... and all critical care pts) @ Low likelihood - Lab Data Result diagrams: 07/21/22 00:21 07/21/22 01:10 Lab Results 07/21/22 07/21/22 07/21/22 Range/Units 00:21 01:10 03:10 WBC 7.5 (3.8-10.6) k/uL RBC 3.56 L (3.80-5.40) m/uL Hgb 11.9 (11.4-16.0) gm/dL Hct 34.9 (34.0-46.0) % MCV 98.0 (80.0-100.0) fL MCH 33.3 (25.0-35.0) pg MCHC 34.0 (31.0-37.0) g/dL RDW 15.1 (11.5-15.5) % Plt Count 275 (150-450) k/uL MPV 7.9 Neutrophils % 75 % Lymphocytes % 17 % Monocytes % 4 % Eosinophils % 3 % Basophils % 0 % Neutrophils # 5.7 (1.3-7.7) k/uL Lymphocytes # 1.2 (1.0-4.8) k/uL Monocytes # 0.3 (0-1.0) k/uL Eosinophils # 0.2 (0-0.7) k/uL Basophils # 0.0 (0-0.2) k/uL Sodium 129 L (137-145) mmol/L Potassium 4.2 (3.5-5.1) mmol/L Chloride 102 (98-107) mmol/L Carbon Dioxide 15 L (22-30) mmol/L Anion Gap 12 mmol/L BUN 19 H (7-17) mg/dL Creatinine 1.63 H (0.52-1.04) mg/dL Est GFR (CKD-EPI)AfAm 38 (>60 ml/min/1.73 sqM) Est GFR (CKD-EPI)NonAf 33 (>60 ml/min/1.73 sqM) Glucose 166 H (74-99) mg/dL Calcium 7.6 L (8.4-10.2) mg/dL Total Bilirubin 0.3 (0.2-1.3) mg/dL AST 27 (14-36) U/L ALT 16 (4-34) U/L Alkaline Phosphatase 136 H (38-126) U/L Total Protein 6.9 (6.3-8.2) g/dL Albumin 2.6 L (3.5-5.0) g/dL Urine Color Yellow Urine Appearance Cloudy H (Clear) Urine pH 6.0 (5.0-8.0) Ur Specific [place] 1.011 (1.001-1.035) Urine Protein 1+ H (Negative) Urine Glucose (UA) Negative (Negative) Urine Ketones Negative (Negative) Urine Blood Trace H (Negative) Urine Nitrite Negative (Negative) Urine Bilirubin Negative (Negative) Urine Urobilinogen <2.0 (<2.0) mg/dL Ur Leukocyte Esterase Large H (Negative) Urine RBC 4 (0-5) /hpf Urine WBC >182 H (0-5) /hpf Urine WBC Clumps Many H (None) /hpf Ur Squamous Epith Cells 3 (0-4) /hpf Amorphous Sediment Occasional H (None) /hpf Urine Bacteria Many H (None) /hpf Hyaline Casts 13 H (0-2) /lpf Urine Mucus Rare H (None) /hpf Disposition Clinical Impression: Right flank pain, Urinary tract infection Disposition: HOME SELF-CARE Condition: Stable Additional Instructions: Please return to the nearest emergency department if symptoms worsen or persist Prescriptions: Cephalexin [Keflex] 500 mg PO Q6HR #40 cap HYDROcodone/APAP 5-325MG [[place] 5] 1 each PO Q6HR PRN #6 tab PRN Reason: Pain Is patient prescribed a controlled substance at d/c from ED?: No Referrals: Nonstaff,Physician [Primary Care Provider] - 1-2 days Jefferson Valenzuela MD [STAFF PHYSICIAN] - 1-2 days Time of Disposition: 03:52
[2022-07-21 03:45] LABS: Amorphous Sediment,Urine Occasional /hpf; Appearance,Urine Cloudy (Clear); Bacteria,Urine Many /hpf; Bilirubin,Urine Negative (Negative); Blood,Urine Trace (Negative); Color,Urine Yellow; Glucose,Urine (UA) Negative (Negative); Hyaline Casts,Urine 13 /lpf (0-2); Ketones,Urine Negative (Negative); Leukocyte Esterase,Urine Large (Negative); Mucus,Urine Rare /hpf; Nitrite,Urine Negative (Negative); Protein,Urine 1+ (Negative); RBC,Urine 4 /hpf (0-5); Specific Gravity,Urine 1.011 (1.001-1.035); Squamous Epithelial Cell,Urine 3 /hpf (0-4); Urobilinogen,Urine <2.0 mg/dL (<2.0); WBC,Urine >182 /hpf (0-5)
[2022-07-21] MEDS ORDERED: CEPHALEXIN 500 MG CAP PO STA (03:50)
[2022-07-21] MEDS ORDERED: ACET/COD 300 MG/30 MG STARTER PACK 6 TAB BTL PO STA (03:56)
[2022-07-21 04:33] VITALS: BP 142/76; PULSE 77; RESP 14
== END 2022-07-21 04:34 | disposition home or self-care (01) ==
LOC: EC 23:28
DX: N39.0 Urinary tract infection, site not specified (principal); N20.0 Calculus of kidney; K57.30 Diverticulosis of large intestine without perforation or abscess without bleeding; E11.9 Type 2 diabetes mellitus without complications; I10 Essential (primary) hypertension; E78.5 Hyperlipidemia, unspecified; K21.9 Gastro-esophageal reflux disease without esophagitis; M19.90 Unspecified osteoarthritis, unspecified site; F32.A Depression, unspecified; F17.200 Nicotine dependence, unspecified, uncomplicated; Z79.4 Long term (current) use of insulin; Z79.84 Long term (current) use of oral hypoglycemic drugs; Z79.82 Long term (current) use of aspirin; Z79.899 Other long term (current) drug therapy; Z90.49 Acquired absence of other specified parts of digestive tract
CPT/HCPCS: 36415; 74176; 80053; 81001; 85025; 87086; 96361; 96374; 96375; 99284